=== PATIENT | male | born 1945 | race Asian ===

== ENCOUNTER → 2017-03-13 | Outpatient (CLI) | payer MEDICARE, OTHER ==
[2017-03-13 12:11] LABS: HEMOGLOBIN A1C 8.8 % (4.5-6.2)
[2017-03-13 12:17] LABS: CALCIUM, TOTAL 9.8 mg/dL (8.8-10.5); CREATININE 1.61 mg/dL (0.60-1.30); POTASSIUM 5.2 mmol/L (3.5-5.1)
== END | disposition home or self-care (01) ==
LOC: LABPV 09:09
PROVIDERS: ATTEND Internal Medicine Nephrology
DX: I12.9 Hypertensive chronic kidney disease with stage 1 through stage 4 chronic kidney disease, or unspecified chronic kidney disease (principal); N18.3 Chronic kidney disease, stage 3 (moderate); E11.29 Type 2 diabetes mellitus with other diabetic kidney complication; E78.4 Other hyperlipidemia
CPT/HCPCS: 82306; 82570; 83036; 84156

== ENCOUNTER → 2017-07-02 | Outpatient (CLI) | payer MEDICARE, OTHER ==
[2017-07-02 13:20] LABS: HEMOGLOBIN 13.2 g/dL (13.5-17.5)
[2017-07-02 13:24] LABS: HEMOGLOBIN A1C 6.8 % (4.5-6.2)
[2017-07-02 13:27] LABS: CALCIUM, TOTAL 9.7 mg/dL (8.8-10.5); CREATININE 1.74 mg/dL (0.60-1.30); PHOSPHORUS 5.5 mg/dL (2.5-4.9); POTASSIUM 5.4 mmol/L (3.5-5.1)
== END | disposition home or self-care (01) ==
LOC: LABPV 10:21
PROVIDERS: ATTEND Internal Medicine Nephrology
DX: E11.22 Type 2 diabetes mellitus with diabetic chronic kidney disease (principal); N18.3 Chronic kidney disease, stage 3 (moderate); E78.4 Other hyperlipidemia
CPT/HCPCS: 82570; 83036; 83970; 84100; 84156; 85014; 85018

== ENCOUNTER → 2017-10-16 | Outpatient (CLI) | payer MEDICARE, OTHER ==
[2017-10-16 10:09] LABS: APPEARANCE,URINE CLEAR (CLEAR); GLUCOSE, URINE (UA) NEGATIVE (NEGATIVE); KETONES,URINE NEGATIVE (NEGATIVE); LEUKOCYTE ESTERASE ,URINE NEGATIVE (NEGATIVE); OCCULT BLOOD,URINE NEGATIVE (NEGATIVE); PH,URINE 5.5 (5.0-8.0); PROTEIN,URINE SEE CONFIRM (NEGATIVE)
[2017-10-16 10:16] LABS: CALCIUM, TOTAL 9.4 mg/dL (8.8-10.5); CHOL/HDL RATIO 2.4 (4.2-7.3); CREATININE 1.56 mg/dL (0.60-1.30); POTASSIUM 5.1 mmol/L (3.5-5.1)
[2017-10-16 10:29] LABS: ADD UA MICROSCOPIC YES; SULFOSALICYLIC ACID,URINE 3+ (Negative)
[2017-10-16 10:31] LABS: FINE GRANULAR CASTS,URINE 0-2 /LPF (None Seen); RBC,URINE 0-2 /HPF (0-2); SQUAMOUS EPITHELIAL CELL,UR Rare /LPF (None Seen); WBC,URINE 0-2 /HPF (0-5)
== END | disposition home or self-care (01) ==
LOC: LABPV 08:31
PROVIDERS: ATTEND Internal Medicine Nephrology
DX: E11.22 Type 2 diabetes mellitus with diabetic chronic kidney disease (principal); N18.3 Chronic kidney disease, stage 3 (moderate); E78.4 Other hyperlipidemia
CPT/HCPCS: 82306; 84100

== ENCOUNTER → 2018-02-18 | Outpatient (CLI) | payer MEDICARE, OTHER ==
[2018-02-18 12:08] LABS: ALBUMIN 3.9 g/dL (3.4-5.0); BILIRUBIN,TOTAL 0.3 mg/dL (0.1-1.0); CALCIUM, TOTAL 9.4 mg/dL (8.8-10.5); CREATININE 1.93 mg/dL (0.60-1.30); POTASSIUM 5.6 mmol/L (3.5-5.1); TOTAL PROTEIN, SERUM 7.9 g/dL (6.4-8.2)
== END | disposition home or self-care (01) ==
LOC: LABPV 09:58
PROVIDERS: ATTEND Internal Medicine Nephrology
DX: E11.22 Type 2 diabetes mellitus with diabetic chronic kidney disease (principal); N18.3 Chronic kidney disease, stage 3 (moderate); E78.4 Other hyperlipidemia
CPT/HCPCS: 82570; 83036; 84156

== ENCOUNTER → 2018-06-04 | Outpatient (CLI) | payer MEDICARE, OTHER ==
[2018-06-04 10:17] LABS: CREATININE,URINE RANDOM 187.2 mg/dL (30.0-125.0)
[2018-06-04 10:24] LABS: HEMOGLOBIN A1C 8.2 % (4.5-6.2)
[2018-06-04 10:26] LABS: CALCIUM, TOTAL 9.4 mg/dL (8.8-10.5); CHOL/HDL RATIO 2.6 (4.2-7.3); CREATININE 2.08 mg/dL (0.60-1.30); POTASSIUM 5.1 mmol/L (3.5-5.1)
== END | disposition home or self-care (01) ==
LOC: LABPV 08:27
PROVIDERS: ATTEND Internal Medicine Nephrology
DX: E11.22 Type 2 diabetes mellitus with diabetic chronic kidney disease (principal); N18.3 Chronic kidney disease, stage 3 (moderate); E78.4 Other hyperlipidemia
CPT/HCPCS: 82306; 82570; 83036; 84156

== ENCOUNTER → 2018-10-15 | Outpatient (CLI) | payer MEDICARE, OTHER ==
[2018-10-15 15:30] LABS: APPEARANCE,URINE CLEAR (CLEAR); BILIRUBIN,URINE NEGATIVE (NEGATIVE); GLUCOSE, URINE (UA) 500 mg/dL (NEGATIVE); KETONES,URINE TRACE mg/dL (NEGATIVE); LEUKOCYTE ESTERASE ,URINE NEGATIVE (NEGATIVE); NITRATE,URINE NEGATIVE (NEGATIVE); OCCULT BLOOD,URINE NEGATIVE (NEGATIVE); PH,URINE 5.5 (5.0-8.0); PROTEIN,URINE SEE CONFIRM (NEGATIVE); UROBILINOGEN,URINE 0.2 mg/dL (<=1.0)
[2018-10-15 15:36] LABS: CALCIUM, TOTAL 9.1 mg/dL (8.8-10.5); CREATININE 1.73 mg/dL (0.60-1.30); PHOSPHORUS 5.2 mg/dL (2.5-4.9)
[2018-10-15 15:51] LABS: BACTERIA,URINE Few /HPF (None Seen); RBC,URINE 0-2 /HPF (0-2); SQUAMOUS EPITHELIAL CELL,UR Few /LPF (None Seen); SULFOSALICYLIC ACID,URINE 3+ (Negative); WBC,URINE 0-2 /HPF (0-5)
== END | disposition home or self-care (01) ==
LOC: LABPV 11:47
PROVIDERS: ATTEND Internal Medicine Nephrology
DX: E55.9 Vitamin D deficiency, unspecified (principal); E78.49 Other hyperlipidemia; E11.22 Type 2 diabetes mellitus with diabetic chronic kidney disease; N18.3 Chronic kidney disease, stage 3 (moderate)
CPT/HCPCS: 82306; 83970; 84100

== ENCOUNTER → 2019-02-11 | Outpatient (CLI) | payer MEDICARE, OTHER ==
[2019-02-11 13:07] LABS: ALBUMIN 3.5 g/dL (3.4-5.0); BILIRUBIN,TOTAL 0.4 mg/dL (0.1-1.0); CALCIUM, TOTAL 9.2 mg/dL (8.8-10.5); CREATININE 1.74 mg/dL (0.60-1.30); HEMOGLOBIN A1C 8.7 % (4.5-6.2); POTASSIUM 5.3 mmol/L (3.5-5.1); TOTAL PROTEIN, SERUM 7.2 g/dL (6.4-8.2)
[2019-02-11 13:15] LABS: CREATININE,URINE RANDOM 251.9 mg/dL (30.0-125.0)
[2019-02-11 13:15] LABS: PHOSPHORUS 5.8 mg/dL (2.5-4.9)
== END | disposition home or self-care (01) ==
LOC: LABPV 09:40
PROVIDERS: ATTEND Internal Medicine Nephrology
DX: E11.22 Type 2 diabetes mellitus with diabetic chronic kidney disease (principal); N18.9 Chronic kidney disease, unspecified; E78.49 Other hyperlipidemia
CPT/HCPCS: 82570; 83036; 84100; 84156

== ENCOUNTER → 2019-07-08 | Outpatient (CLI) | payer MEDICARE, OTHER ==
[2019-07-08 12:55] LABS: CALCIUM, TOTAL 9.6 mg/dL (8.8-10.5); CREATININE 1.96 mg/dL (0.60-1.30); PHOSPHORUS 4.5 mg/dL (2.5-4.9); POTASSIUM 4.6 mmol/L (3.5-5.1)
== END | disposition home or self-care (01) ==
LOC: LABPV 11:00
PROVIDERS: ATTEND Internal Medicine Nephrology
DX: E11.22 Type 2 diabetes mellitus with diabetic chronic kidney disease (principal); N18.3 Chronic kidney disease, stage 3 (moderate); R80.8 Other proteinuria; E83.39 Other disorders of phosphorus metabolism
CPT/HCPCS: 84100

== ENCOUNTER 2019-10-02 11:25 | Inpatient (IN) | payer MEDICARE, OTHER ==
[~2019-10-02] VITALS: Ht 167.6 cm; Wt 63.0 kg
[2019-10-02] MEDS ORDERED: FISH1 PO (12:09)
[2019-10-02] MEDS ORDERED: METF-960 PO (12:09)
[2019-10-02] MEDS ORDERED: SELE PO (12:09)
[2019-10-02] MEDS ORDERED: SITA50 PO (12:09)
[2019-10-02] MEDS ORDERED: CALC-1038 PO (12:09)
[2019-10-02] MEDS ORDERED: POLY17PO PO (12:09)
[2019-10-02] MEDS ORDERED: CARB-38 PO (12:09)
[2019-10-02] MEDS ORDERED: METO-558 PO (12:09)
[2019-10-02] MEDS ORDERED: ATOR10TA84 PO (12:09)
[2019-10-02] MEDS ORDERED: CHOL100018 PO (12:09)
[2019-10-02] MEDS ORDERED: ASPI-1182 PO (12:09)
[2019-10-02] MEDS ORDERED: MELA5TAB3 PO (12:09)
[2019-10-02] MEDS ORDERED: ACET-2247 PO (12:09)
[2019-10-02] MEDS ORDERED: EXEN2PEN SQ (12:09)
[2019-10-02] MEDS ORDERED: INSLAN SQ (12:09)
[2019-10-02] MEDS ORDERED: ALPR0.255 PO (12:09)
[2019-10-02 13:51] LABS: GLUCOSE,POINT OF CARE 228 MG/DL (70-110)
[2019-10-02 15:58] LABS: BASOPHILS % (AUTO) 0.7 % (0.0-2.0); EOSINOPHILS % (AUTO) 0.1 % (1.0-6.0); HEMATOCRIT 42.7 % (41-53); LYMPHOCYTES # (AUTO) 1.2 K/uL (1.0-4.8); LYMPHOCYTES % (AUTO) 10.5 % (22.0-44.0); MEAN CORPUSCULAR HEMOGLOBIN 29.1 pg (26.0-34.0); MEAN CORPUSCULAR HGB CONC 32.7 G/dL (31.0-37.0); MEAN CORPUSCULAR VOLUME 89 fL (80-100); MONOCYTES # (AUTO) 0.8 K/uL (0.1-1.0); MONOCYTES % (AUTO) 6.8 % (2.0-9.0); NEUTROPHILS # (AUTO) 9.6 K/uL (1.8-7.7); NEUTROPHILS % (AUTO) 81.9 % (40.0-70.0); PLATELET COUNT (AUTO) 432 K/uL (150-450); RED BLOOD CELL COUNT(AUTO) 4.79 MIL/uL (4.50-5.90); RED CELL DISTRIBUTION WIDTH 13.7 % (11.5-14.5)
[2019-10-02 16:06] LABS: ANION GAP 10 mmol/L (8-16); CALCIUM, TOTAL 9.9 mg/dL (8.8-10.5); CARBON DIOXIDE 26 mmol/L (22-29); CHLORIDE 95 mmol/L (98-107); CREATININE 2.41 mg/dL (0.60-1.30); GLOMERULAR FILTR. RATE CALC 27 mL/min (>60); GLUCOSE,RANDOM 187 mg/dL (70-110); POTASSIUM 4.8 mmol/L (3.5-5.1); SODIUM SERUM 131 mmol/L (136-145); UREA NITROGEN, BLOOD 50 mg/dL (7-18)
[2019-10-02 16:12] LABS: ALANINE AMINOTRANSFERASE 16 U/L (12-78); ALBUMIN 4.1 g/dL (3.4-5.0); ALKALINE PHOSPHATASE 48 U/L (46-116); ASPARTATE AMINOTRANSFERASE 17 U/L (15-37); BILIRUBIN,TOTAL 0.3 mg/dL (0.1-1.0); CREATINE KINASE, TOTAL ONLY 57 U/L (39-308); TOTAL PROTEIN, SERUM 8.5 g/dL (6.4-8.2)
[2019-10-02 16:15] LABS: TROPONIN I 0.18 ng/mL (0.00-0.05)
[2019-10-02 16:23] LABS: INR 0.9 (0.9-1.1); PROTHROMBIN TIME 9.6 SEC (9.4-11.6)
[2019-10-02 16:24] LABS: AMMONIA < 10 umol/L (11-32)
[2019-10-02 16:34] LABS: LACTIC ACID 2.1 mmol/L (0.4-2.0)
[2019-10-02] MEDS ORDERED: CefTRIAXone 1 GM/DEXTROSE 50 ML IV ONE (17:00)
[2019-10-02] MEDS ORDERED: SODIUM CHLORIDE 0.9% 2,000 ML IV ONE (17:00)
[2019-10-02] MEDS ORDERED: HydrALAZINE HCL 20 MG/ML VIAL IVP ONE (17:15)
[2019-10-02] MEDS ORDERED: ACETAMINOPHEN 325 MG TABLET PO PRN (18:00)
[2019-10-02] MEDS ORDERED: ASPIRIN 81 MG CHEWABLE TABLET PO ONE (18:00)
[2019-10-02] MEDS ORDERED: ONDANSETRON HCL 4 MG/2 ML VIAL IVP PRN ×2 (18:00→23:45)
[2019-10-02 20:29] VITALS: BP 144/78
[2019-10-02] MEDS ORDERED: 0.9% SODIUM CHLORIDE 10 ML SYRINGE IVP PRN (23:45)
[2019-10-02] MEDS ORDERED: ZOLPIDEM TARTRATE 5 MG TABLET PO PRN (23:45)
[2019-10-02] MEDS ORDERED: INSULIN GLARGINE,HUM.REC.ANLOG 100 UNITS/ML SQ SCH (23:45)
[2019-10-02] MEDS ORDERED: DEXTROSE 50%-WATER 25 GM/50 ML SYRINGE IVP PRN (23:45)
[2019-10-03] VITALS (17 sets, daily range): BP systolic 113–168; BP diastolic 49–100
[2019-10-03] MEDS ORDERED: ACETAMINOPHEN 325 MG TABLET PO SCH
[2019-10-03] MEDS: SELEGILINE HCL 5 MG TABLET PO SCH ×3 (00:32→21:21)
[2019-10-03] MEDS ORDERED: PNEUMOCOCCAL VACCINE POLYVALENT 0.5 ML VIAL [PPSV23] IM ONE (02:00)
[2019-10-03 06:49] LABS: BASOPHILS % (AUTO) 0.3 % (0.0-2.0); EOSINOPHILS % (AUTO) 0 % (1.0-6.0); HEMATOCRIT 36.6 % (41-53); HEMOGLOBIN 12.2 g/dL (13.5-17.5); LYMPHOCYTES # (AUTO) 1.4 K/uL (1.0-4.8); LYMPHOCYTES % (AUTO) 11.9 % (22.0-44.0); MEAN CORPUSCULAR HEMOGLOBIN 29.3 pg (26.0-34.0); MEAN CORPUSCULAR HGB CONC 33.2 G/dL (31.0-37.0); MEAN CORPUSCULAR VOLUME 88 fL (80-100); MONOCYTES # (AUTO) 1.3 K/uL (0.1-1.0); MONOCYTES % (AUTO) 10.9 % (2.0-9.0); NEUTROPHILS % (AUTO) 76.9 % (40.0-70.0); PLATELET COUNT (AUTO) 359 K/uL (150-450); RED BLOOD CELL COUNT(AUTO) 4.16 MIL/uL (4.50-5.90); RED CELL DISTRIBUTION WIDTH 13.7 % (11.5-14.5)
[2019-10-03 07:00] LABS: CALCIUM, TOTAL 8.6 mg/dL (8.8-10.5); CREATININE 1.84 mg/dL (0.60-1.30); MAGNESIUM 1.8 mg/dL (1.80-2.40); POTASSIUM 4.5 mmol/L (3.5-5.1)
[2019-10-03] MEDS ORDERED: ATORVASTATIN CALCIUM 40 MG TABLET PO ONE (08:00)
[2019-10-03] MEDS ORDERED: HEPARIN SODIUM,PORCINE 5,000 UNITS/ML VIAL IVP PRN ×2 (08:00)
[2019-10-03] MEDS ORDERED: MetFORMIN HCL 500 MG TABLET PO SCH (08:00)
[2019-10-03] MEDS ORDERED: HEPARIN SODIUM,PORCINE 5,000 UNITS/ML VIAL IVP ONE (08:00)
[2019-10-03] MEDS: ASPIRIN 81 MG CHEWABLE TABLET PO SCH (08:26)
[2019-10-03 08:43] LABS: CHOL/HDL RATIO 2.6 (4.2-7.3)
[2019-10-03] MEDS: HEPARIN SODIUM 25000 UNITS/D5W 250 ML IV PRN (08:59)
[2019-10-03] MEDS ORDERED: DOCUSATE SODIUM 100 MG CAPSULE PO PRN (09:00)
[2019-10-03] MEDS ORDERED: METOPROLOL SUCCINATE 50 MG ER TABLET PO SCH (09:00)
[2019-10-03] MEDS ORDERED: SitaGLIPtin PHOSPHATE 50 MG TABLET PO SCH (09:00)
[2019-10-03] MEDS: CALCIUM OYSTER SHELL 500 MG TABLET PO SCH (09:00)
[2019-10-03] MEDS: CHOLECALCIFEROL (VIT D3) 1,000 UNITS TABLET PO SCH ×2 (09:00→21:21)
[2019-10-03] MEDS ORDERED: ALPRAZolam 0.25 MG TABLET PO SCH (09:00)
[2019-10-03] MEDS ORDERED: METOPROLOL TARTRATE 25 MG TABLET PO SCH (09:00)
[2019-10-03] MEDS ORDERED: DOCUSATE SODIUM 100 MG CAPSULE PO SCH (09:00)
[2019-10-03] MEDS ORDERED: ASPIRIN 81 MG EC TABLET PO SCH (09:00)
[2019-10-03 09:08] LABS: PROTHROMBIN TIME 10.3 SEC (9.4-11.6)
[2019-10-03] MEDS ORDERED: METOPROLOL TARTRATE 25 MG TABLET PO ONE (10:15)
[2019-10-03] MEDS: PANTOPRAZOLE SODIUM 40 MG DR TABLET PO SCH (10:29)
[2019-10-03] MEDS: SODIUM CHLORIDE 0.9% 1,000 ML IV SCH ×2 (10:30→22:52)
[2019-10-03 11:14] LABS: APPEARANCE,URINE CLEAR (CLEAR); BILIRUBIN,URINE NEGATIVE (NEGATIVE); GLUCOSE, URINE (UA) 500 mg/dL (NEGATIVE); KETONES,URINE 40 mg/dL (NEGATIVE); LEUKOCYTE ESTERASE ,URINE NEGATIVE (NEGATIVE); NITRATE,URINE NEGATIVE (NEGATIVE); PROTEIN,URINE SEE CONFIRM (NEGATIVE); UROBILINOGEN,URINE 0.2 mg/dL (<=1.0)
[2019-10-03 11:24] LABS: OCCULT BLOOD,URINE TRACE (NEGATIVE)
[2019-10-03 11:25] LABS: BACTERIA,URINE None Seen /HPF (None Seen); RBC,URINE 0-2 /HPF (0-2); SULFOSALICYLIC ACID,URINE 3+ (Negative); WBC,URINE None Seen /HPF (0-5)
[2019-10-03] MEDS ORDERED: IOHEXOL 300 MG/ML 150 ML VIAL ONE (11:55)
[2019-10-03] MEDS ORDERED: LIDOCAINE/PF 1% 30 ML VIAL ONE (11:55)
[2019-10-03] MEDS ORDERED: HEPARIN SODIUM 1000 UNITS/NS 1,000 ML ONE (11:55)
[2019-10-03] MEDS ORDERED: SODIUM BICARBONATE 50 MEQ/50 ML VIAL ONE (11:55)
[2019-10-03 12:20] LABS: GLUCOMETER DEV NAME(LOC) 5N.1; GLUCOSE,POINT OF CARE 167 MG/DL (70-110)
[2019-10-03 12:22] LABS: GLUCOMETER DEV NAME(LOC) 5S.2A; GLUCOSE,POINT OF CARE 149 MG/DL (70-110)
[2019-10-03] MEDS ORDERED: IOHEXOL 300 MG/ML 100 ML VIAL ONE (12:22)
[2019-10-03] MEDS ORDERED: HEPARIN SODIUM 2,000 UNITS in HEPARIN SODIUM 1000 UNITS/NS 1,000 ML IARTER ONE (12:47)
[2019-10-03] MEDS ORDERED: SODIUM CHLORIDE 0.9% 500 ML IV ONE (12:47)
[2019-10-03] MEDS ORDERED: IOHEXOL 300 MG/ML 150 ML VIAL IARTER ONE (13:00)
[2019-10-03] MEDS ORDERED: LIDOCAINE 1% 30 ML/SOD BICARB 8.4% 4 ML SQ ONE (13:00)
[2019-10-03] MEDS ORDERED: AmLODIPine BESYLATE 5 MG TABLET ONE (15:37)
[2019-10-03] MEDS: AmLODIPine BESYLATE 5 MG TABLET PO SCH (15:45)
[2019-10-03] MEDS ORDERED: HydrALAZINE HCL 20 MG/ML VIAL ONE (16:43)
[2019-10-03] MEDS: HydrALAZINE HCL 20 MG/ML VIAL IVP PRN (16:50)
[2019-10-03] MEDS: INSULIN LISPRO 100 UNITS/ML SQ PRN ×2 (17:36→21:25)
[2019-10-03] MEDS ORDERED: AMIODARONE HCL 360 MG in DEXTROSE 5%-WATER 242.8 ML IV ONE (20:30)
[2019-10-03] MEDS ORDERED: DIGOXIN 250 MCG/ML 2 ML AMP IVP ONE (20:30)
[2019-10-03] MEDS: INSULIN GLARGINE,HUM.REC.ANLOG 100 UNITS/ML SQ SCH (21:25)
[2019-10-03] MEDS: ATORVASTATIN CALCIUM 10 MG TABLET PO SCH (21:54)
[2019-10-03 22:52] LABS: GLUCOSE,POINT OF CARE 176 MG/DL (70-110)
[2019-10-03 22:52] LABS: GLUCOSE,POINT OF CARE 197 MG/DL (70-110)
[2019-10-04] VITALS (7 sets, daily range): BP systolic 123–176; BP diastolic 43–101
[2019-10-04] MEDS ORDERED: AMIODARONE HCL 540 MG in DEXTROSE 5%-WATER 239.2 ML IV ONE (02:30)
[2019-10-04] MEDS: HydrALAZINE HCL 20 MG/ML VIAL IVP PRN ×2 (04:43→14:05)
[2019-10-04 05:08] LABS: BASOPHILS % (AUTO) 0.8 % (0.0-2.0); EOSINOPHILS % (AUTO) 0.1 % (1.0-6.0); HEMOGLOBIN 12.9 g/dL (13.5-17.5); LYMPHOCYTES # (AUTO) 1.4 K/uL (1.0-4.8); LYMPHOCYTES % (AUTO) 10.2 % (22.0-44.0); MEAN CORPUSCULAR HEMOGLOBIN 29.4 pg (26.0-34.0); MEAN CORPUSCULAR VOLUME 89 fL (80-100); MONOCYTES # (AUTO) 1.5 K/uL (0.1-1.0); MONOCYTES % (AUTO) 11.2 % (2.0-9.0); NEUTROPHILS # (AUTO) 10.4 K/uL (1.8-7.7); NEUTROPHILS % (AUTO) 77.7 % (40.0-70.0); PLATELET COUNT (AUTO) 370 K/uL (150-450); RED BLOOD CELL COUNT(AUTO) 4.38 MIL/uL (4.50-5.90); RED CELL DISTRIBUTION WIDTH 13.9 % (11.5-14.5)
[2019-10-04 05:24] LABS: ALBUMIN 3.2 g/dL (3.4-5.0); BILIRUBIN,TOTAL 0.5 mg/dL (0.1-1.0); CALCIUM, TOTAL 8.8 mg/dL (8.8-10.5); CREATININE 1.66 mg/dL (0.60-1.30); MAGNESIUM 1.6 mg/dL (1.80-2.40); PHOSPHORUS 2.9 mg/dL (2.5-4.9); POTASSIUM 4.4 mmol/L (3.5-5.1)
[2019-10-04] MEDS: INSULIN LISPRO 100 UNITS/ML SQ PRN ×3 (06:28→17:21)
[2019-10-04] MEDS: PANTOPRAZOLE SODIUM 40 MG DR TABLET PO SCH (09:25)
[2019-10-04] MEDS: ASPIRIN 81 MG CHEWABLE TABLET PO SCH (09:25)
[2019-10-04] MEDS: CALCIUM OYSTER SHELL 500 MG TABLET PO SCH (09:25)
[2019-10-04] MEDS: CHOLECALCIFEROL (VIT D3) 1,000 UNITS TABLET PO SCH ×2 (09:26→20:37)
[2019-10-04] MEDS: AmLODIPine BESYLATE 5 MG TABLET PO SCH ×2 (09:26→20:37)
[2019-10-04] MEDS: METOPROLOL SUCCINATE 50 MG ER TABLET PO SCH (09:26)
[2019-10-04] MEDS: SELEGILINE HCL 5 MG TABLET PO SCH ×2 (09:27→20:37)
[2019-10-04] MEDS: POLYETHYLENE GLYCOL 3350 17 GM PACKET PO SCH (09:27)
[2019-10-04] MEDS: SODIUM CHLORIDE 0.9% 1,000 ML IV SCH (09:28)
[2019-10-04] MEDS: HEPARIN SODIUM 25000 UNITS/D5W 250 ML IV PRN (09:30)
[2019-10-04 17:26] LABS: GLUCOSE,POINT OF CARE 189 MG/DL (70-110)
[2019-10-04 17:29] LABS: GLUCOSE,POINT OF CARE 206 MG/DL (70-110)
[2019-10-04] MEDS: ATORVASTATIN CALCIUM 10 MG TABLET PO SCH (20:37)
[2019-10-04] MEDS: AMIODARONE HCL 750 MG in DEXTROSE 5%-WATER 485 ML IV SCH (20:38)
[2019-10-04] MEDS: INSULIN GLARGINE,HUM.REC.ANLOG 100 UNITS/ML SQ SCH (20:51)
[2019-10-04] MEDS: ACETAMINOPHEN 325 MG TABLET PO PRN (23:03)
[2019-10-05] VITALS: BP 168/98
[2019-10-05] MEDS: HydrALAZINE HCL 20 MG/ML VIAL IVP PRN ×3 (00:10→22:34)
[2019-10-05 02:15] LABS: GLUCOSE,POINT OF CARE 139 MG/DL (70-110)
[2019-10-05] MEDS: SODIUM CHLORIDE 0.9% 1,000 ML IV SCH (03:38)
[2019-10-05 04:00] VITALS: BP 146/95
[2019-10-05 05:36] LABS: CALCIUM, TOTAL 8.6 mg/dL (8.8-10.5); CREATININE 1.65 mg/dL (0.60-1.30); MAGNESIUM 1.6 mg/dL (1.80-2.40); PHOSPHORUS 3.4 mg/dL (2.5-4.9)
[2019-10-05] MEDS ORDERED: MAGNESIUM OXIDE 400 MG TABLET PO ONE (05:45)
[2019-10-05] MEDS: INSULIN LISPRO 100 UNITS/ML SQ PRN ×2 (06:46→12:02)
[2019-10-05 07:27] LABS: GLUCOSE,POINT OF CARE 173 MG/DL (70-110)
[2019-10-05 08:00] VITALS: BP 136/63
[2019-10-05] MEDS ORDERED: MAGNESIUM SULFATE 2 GM/WATER 50 ML IV ONE (08:15)
[2019-10-05] MEDS ORDERED: MAGNESIUM SULFATE 2 GM in DEXTROSE 5%-WATER 50 ML IV ONE (08:30)
[2019-10-05] MEDS: SELEGILINE HCL 5 MG TABLET PO SCH ×2 (08:38→21:00)
[2019-10-05] MEDS: METOPROLOL SUCCINATE 50 MG ER TABLET PO SCH (08:39)
[2019-10-05] MEDS: CALCIUM OYSTER SHELL 500 MG TABLET PO SCH (08:39)
[2019-10-05] MEDS: AmLODIPine BESYLATE 5 MG TABLET PO SCH ×2 (08:39→21:00)
[2019-10-05] MEDS: ASPIRIN 81 MG CHEWABLE TABLET PO SCH (08:39)
[2019-10-05] MEDS: PANTOPRAZOLE SODIUM 40 MG DR TABLET PO SCH (08:39)
[2019-10-05] MEDS: CHOLECALCIFEROL (VIT D3) 1,000 UNITS TABLET PO SCH ×2 (08:39→21:00)
[2019-10-05] MEDS: DIGOXIN 250 MCG/ML 2 ML AMP IVP SCH ×2 (08:53→14:45)
[2019-10-05 12:00] VITALS: BP 121/93
[2019-10-05 13:01] LABS: GLUCOSE,POINT OF CARE 161 MG/DL (70-110)
[2019-10-05] MEDS: HEPARIN SODIUM 25000 UNITS/D5W 250 ML IV PRN (15:24)
[2019-10-05 16:00] VITALS: BP 159/105
[2019-10-05 20:00] VITALS: BP 151/110
[2019-10-05] MEDS: INSULIN GLARGINE,HUM.REC.ANLOG 100 UNITS/ML SQ SCH (21:00)
[2019-10-05] MEDS: ATORVASTATIN CALCIUM 10 MG TABLET PO SCH (21:00)
[2019-10-05] MEDS: AMIODARONE HCL 750 MG in DEXTROSE 5%-WATER 485 ML IV SCH (21:03)
[2019-10-06] VITALS: BP 159/77
[2019-10-06 04:00] VITALS: BP 152/82
[2019-10-06 05:35] LABS: CALCIUM, TOTAL 8.8 mg/dL (8.8-10.5); CREATININE 1.71 mg/dL (0.60-1.30); MAGNESIUM 1.8 mg/dL (1.80-2.40); PHOSPHORUS 3.4 mg/dL (2.5-4.9); POTASSIUM 4.8 mmol/L (3.5-5.1)
[2019-10-06 08:00] VITALS: BP 171/103
[2019-10-06] MEDS: POLYETHYLENE GLYCOL 3350 17 GM PACKET PO SCH (09:00)
[2019-10-06] MEDS: SELEGILINE HCL 5 MG TABLET PO SCH ×2 (09:46→21:35)
[2019-10-06] MEDS: AmLODIPine BESYLATE 5 MG TABLET PO SCH ×2 (09:47→21:36)
[2019-10-06] MEDS: CHOLECALCIFEROL (VIT D3) 1,000 UNITS TABLET PO SCH ×2 (09:47→21:36)
[2019-10-06] MEDS: CALCIUM OYSTER SHELL 500 MG TABLET PO SCH (09:47)
[2019-10-06] MEDS: ASPIRIN 81 MG CHEWABLE TABLET PO SCH (09:47)
[2019-10-06] MEDS: PANTOPRAZOLE SODIUM 40 MG DR TABLET PO SCH (09:51)
[2019-10-06] MEDS: SODIUM BICARBONATE 650 MG TABLET PO SCH (11:05)
[2019-10-06] MEDS: METOPROLOL SUCCINATE 50 MG ER TABLET PO SCH (11:06)
[2019-10-06 12:00] VITALS: BP 160/87
[2019-10-06 12:17] LABS: GLUCOSE,POINT OF CARE 226 MG/DL (70-110)
[2019-10-06] MEDS: INSULIN LISPRO 100 UNITS/ML SQ PRN ×3 (12:26→21:34)
[2019-10-06] MEDS: VITAMIN B COMP/VIT C/FOLIC ACID CAPSULE PO SCH (12:30)
[2019-10-06] MEDS: CARBIDOPA/LEVODOPA 25-100 MG TABLET PO SCH ×2 (15:00→19:15)
[2019-10-06 16:00] VITALS: BP 142/76
[2019-10-06 17:24] LABS: GLUCOSE,POINT OF CARE 179 MG/DL (70-110)
[2019-10-06 20:00] VITALS: BP 139/74
[2019-10-06] MEDS: AMIODARONE HCL 750 MG in DEXTROSE 5%-WATER 485 ML IV SCH (20:36)
[2019-10-06] MEDS: INSULIN GLARGINE,HUM.REC.ANLOG 100 UNITS/ML SQ SCH (21:34)
[2019-10-06] MEDS: ATORVASTATIN CALCIUM 40 MG TABLET PO SCH (21:36)
[2019-10-07] VITALS (7 sets, daily range): BP systolic 104–163; BP diastolic 51–83
[2019-10-07] MEDS: CARBIDOPA/LEVODOPA 25-100 MG TABLET PO SCH ×4 (00:02→17:36)
[2019-10-07] MEDS: HydrALAZINE HCL 20 MG/ML VIAL IVP PRN (05:14)
[2019-10-07] MEDS ORDERED: SODIUM CHLORIDE 0.9% 100 ML ONE (06:02)
[2019-10-07 06:24] LABS: GLUCOSE,POINT OF CARE 151 MG/DL (70-110)
[2019-10-07] MEDS: INSULIN LISPRO 100 UNITS/ML SQ PRN ×3 (06:36→21:58)
[2019-10-07] MEDS: ASPIRIN 81 MG CHEWABLE TABLET PO SCH ×2 (08:57→09:00)
[2019-10-07] MEDS: SELEGILINE HCL 5 MG TABLET PO SCH ×3 (08:57→20:59)
[2019-10-07] MEDS: VITAMIN B COMP/VIT C/FOLIC ACID CAPSULE PO SCH ×2 (08:57→09:00)
[2019-10-07] MEDS: CALCIUM OYSTER SHELL 500 MG TABLET PO SCH ×2 (08:58→09:00)
[2019-10-07] MEDS: PANTOPRAZOLE SODIUM 40 MG DR TABLET PO SCH ×2 (08:58→09:00)
[2019-10-07] MEDS: AmLODIPine BESYLATE 5 MG TABLET PO SCH ×3 (08:58→20:58)
[2019-10-07] MEDS: SODIUM BICARBONATE 650 MG TABLET PO SCH ×2 (08:58→09:00)
[2019-10-07] MEDS: CHOLECALCIFEROL (VIT D3) 1,000 UNITS TABLET PO SCH ×3 (08:59→21:01)
[2019-10-07] MEDS: METOPROLOL SUCCINATE 50 MG ER TABLET PO SCH (09:00)
[2019-10-07] MEDS ORDERED: METOPROLOL SUCCINATE 50 MG ER TABLET PO SCH (09:00)
[2019-10-07] MEDS: AMIODARONE HCL 200 MG TABLET PO SCH ×2 (09:30→20:58)
[2019-10-07] MEDS ORDERED: LORazepam 2 MG/ML VIAL IM PRN (11:30)
[2019-10-07] MEDS: LORazepam 2 MG/ML VIAL IVP PRN ×2 (12:27→14:50)
[2019-10-07 13:27] LABS: GLUCOSE,POINT OF CARE 142 MG/DL (70-110)
[2019-10-07] MEDS ORDERED: AMIODARONE HCL 750 MG in DEXTROSE 5%-WATER 485 ML IV SCH (20:00)
[2019-10-07] MEDS: QUEtiapine FUMARATE 25 MG TABLET PO SCH (20:56)
[2019-10-07] MEDS: ATORVASTATIN CALCIUM 40 MG TABLET PO SCH (20:56)
[2019-10-07] MEDS: INSULIN GLARGINE,HUM.REC.ANLOG 100 UNITS/ML SQ SCH (21:58)
[2019-10-08] MEDS: CARBIDOPA/LEVODOPA 25-100 MG TABLET PO SCH ×4 (00:46→17:37)
[2019-10-08 02:50] LABS: GLUCOMETER DEV NAME(LOC) 5N.1; GLUCOSE,POINT OF CARE 153 MG/DL (70-110)
[2019-10-08 02:50] LABS: GLUCOMETER DEV NAME(LOC) 5N.2; GLUCOSE,POINT OF CARE 191 MG/DL (70-110)
[2019-10-08 04:57] VITALS: BP 125/65
[2019-10-08 06:53] LABS: BASOPHILS % (AUTO) 0.5 % (0.0-2.0); EOSINOPHILS % (AUTO) 2.1 % (1.0-6.0); HEMATOCRIT 32.4 % (41-53); HEMOGLOBIN 10.6 g/dL (13.5-17.5); LYMPHOCYTES # (AUTO) 0.7 K/uL (1.0-4.8); LYMPHOCYTES % (AUTO) 6.5 % (22.0-44.0); MEAN CORPUSCULAR HEMOGLOBIN 29.6 pg (26.0-34.0); MEAN CORPUSCULAR HGB CONC 32.7 G/dL (31.0-37.0); MEAN CORPUSCULAR VOLUME 90 fL (80-100); MONOCYTES # (AUTO) 1.4 K/uL (0.1-1.0); MONOCYTES % (AUTO) 13.5 % (2.0-9.0); NEUTROPHILS % (AUTO) 77.4 % (40.0-70.0); PLATELET COUNT (AUTO) 261 K/uL (150-450); RED BLOOD CELL COUNT(AUTO) 3.59 MIL/uL (4.50-5.90)
[2019-10-08 07:20] LABS: ALBUMIN 2.2 g/dL (3.4-5.0); BILIRUBIN,TOTAL 0.4 mg/dL (0.1-1.0); CALCIUM, TOTAL 8.5 mg/dL (8.8-10.5); CREATININE 1.83 mg/dL (0.60-1.30); MAGNESIUM 1.8 mg/dL (1.80-2.40); POTASSIUM 3.8 mmol/L (3.5-5.1); TOTAL PROTEIN, SERUM 5.9 g/dL (6.4-8.2)
[2019-10-08 07:38] LABS: PHOSPHORUS 3.8 mg/dL (2.5-4.9)
[2019-10-08 07:43] VITALS: BP 114/64
[2019-10-08] MEDS: VITAMIN B COMP/VIT C/FOLIC ACID CAPSULE PO SCH (08:57)
[2019-10-08] MEDS: ASPIRIN 81 MG CHEWABLE TABLET PO SCH (08:58)
[2019-10-08] MEDS: CHOLECALCIFEROL (VIT D3) 1,000 UNITS TABLET PO SCH (08:58)
[2019-10-08] MEDS: PANTOPRAZOLE SODIUM 40 MG DR TABLET PO SCH (08:58)
[2019-10-08] MEDS: AMIODARONE HCL 200 MG TABLET PO SCH ×2 (08:58→20:21)
[2019-10-08] MEDS: AmLODIPine BESYLATE 5 MG TABLET PO SCH (08:59)
[2019-10-08] MEDS: SELEGILINE HCL 5 MG TABLET PO SCH ×2 (08:59→20:21)
[2019-10-08] MEDS: CALCIUM OYSTER SHELL 500 MG TABLET PO SCH (09:00)
[2019-10-08] MEDS: POLYETHYLENE GLYCOL 3350 17 GM PACKET PO SCH (09:00)
[2019-10-08] MEDS: QUEtiapine FUMARATE 25 MG TABLET PO SCH ×2 (09:00→20:21)
[2019-10-08] MEDS: METOPROLOL SUCCINATE 50 MG ER TABLET PO SCH (09:01)
[2019-10-08 11:15] VITALS: BP 110/57
[2019-10-08] MEDS: ACETAMINOPHEN 325 MG TABLET PO PRN (12:17)
[2019-10-08] MEDS: INSULIN LISPRO 100 UNITS/ML SQ PRN ×3 (12:21→21:06)
[2019-10-08 12:38] LABS: GLUCOMETER DEV NAME(LOC) 5N.1; GLUCOSE,POINT OF CARE 158 MG/DL (70-110)
[2019-10-08] MEDS ORDERED: DOCUSATE SODIUM 250 MG CAPSULE PO PRN (14:00)
[2019-10-08] MEDS: MethylPREDNISolone SOD SUCC 40 MG/ML VIAL IVP SCH ×2 (15:02→20:21)
[2019-10-08 15:52] VITALS: BP 121/70
[2019-10-08 17:53] LABS: GLUCOMETER DEV NAME(LOC) 5N.2; GLUCOSE,POINT OF CARE 110 MG/DL (70-110)
[2019-10-08 17:56] LABS: GLUCOMETER DEV NAME(LOC) 5N.1; GLUCOSE,POINT OF CARE 180 MG/DL (70-110)
[2019-10-08 19:38] VITALS: BP 121/60
[2019-10-08] MEDS: ATORVASTATIN CALCIUM 40 MG TABLET PO SCH (20:21)
[2019-10-08] MEDS: INSULIN GLARGINE,HUM.REC.ANLOG 100 UNITS/ML SQ SCH (21:06)
[2019-10-09 00:14] VITALS: BP 125/65
[2019-10-09] MEDS: CARBIDOPA/LEVODOPA 25-100 MG TABLET PO SCH ×5 (00:16→23:54)
[2019-10-09 01:17] LABS: GLUCOMETER DEV NAME(LOC) 5N.1; GLUCOSE,POINT OF CARE 366 MG/DL (70-110)
[2019-10-09 05:12] VITALS: BP 136/63
[2019-10-09] MEDS: INSULIN LISPRO 100 UNITS/ML SQ PRN ×4 (06:43→20:37)
[2019-10-09 07:09] LABS: BASOPHILS % (AUTO) 0.2 % (0.0-2.0); EOSINOPHILS % (AUTO) 0 % (1.0-6.0); HEMATOCRIT 34.4 % (41-53); HEMOGLOBIN 11.4 g/dL (13.5-17.5); LYMPHOCYTES # (AUTO) 0.3 K/uL (1.0-4.8); LYMPHOCYTES % (AUTO) 2.6 % (22.0-44.0); MEAN CORPUSCULAR HEMOGLOBIN 29.5 pg (26.0-34.0); MEAN CORPUSCULAR VOLUME 89 fL (80-100); MONOCYTES # (AUTO) 0.3 K/uL (0.1-1.0); MONOCYTES % (AUTO) 2.5 % (2.0-9.0); NEUTROPHILS # (AUTO) 11.8 K/uL (1.8-7.7); PLATELET COUNT (AUTO) 347 K/uL (150-450); RED BLOOD CELL COUNT(AUTO) 3.86 MIL/uL (4.50-5.90); RED CELL DISTRIBUTION WIDTH 13.5 % (11.5-14.5)
[2019-10-09 07:11] LABS: NEUTROPHILS % (AUTO) 94.7 % (40.0-70.0)
[2019-10-09 07:18] LABS: CALCIUM, TOTAL 9.1 mg/dL (8.8-10.5); CREATININE 1.96 mg/dL (0.60-1.30); POTASSIUM 4.3 mmol/L (3.5-5.1); URIC ACID 8.6 mg/dL (2.6-7.2)
[2019-10-09 07:35] VITALS: BP 133/70
[2019-10-09] MEDS: PANTOPRAZOLE SODIUM 40 MG DR TABLET PO SCH (08:08)
[2019-10-09] MEDS: MethylPREDNISolone SOD SUCC 40 MG/ML VIAL IVP SCH ×2 (08:08→20:01)
[2019-10-09] MEDS: VITAMIN B COMP/VIT C/FOLIC ACID CAPSULE PO SCH (08:08)
[2019-10-09] MEDS: QUEtiapine FUMARATE 25 MG TABLET PO SCH (08:09)
[2019-10-09] MEDS: METOPROLOL SUCCINATE 50 MG ER TABLET PO SCH (08:09)
[2019-10-09] MEDS: CALCIUM OYSTER SHELL 500 MG TABLET PO SCH (08:09)
[2019-10-09] MEDS: ASPIRIN 81 MG CHEWABLE TABLET PO SCH (08:09)
[2019-10-09] MEDS: AMIODARONE HCL 200 MG TABLET PO SCH ×2 (08:09→20:02)
[2019-10-09] MEDS: SELEGILINE HCL 5 MG TABLET PO SCH ×2 (08:10→20:02)
[2019-10-09] MEDS: AmLODIPine BESYLATE 5 MG TABLET PO SCH (08:17)
[2019-10-09 08:30] LABS: ERYTHROCYTE SEDIMENTATION RATE 98 MM/HR (0-15)
[2019-10-09] MEDS: CHOLECALCIFEROL (VIT D3) 1,000 UNITS TABLET PO SCH (12:30)
[2019-10-09 12:42] VITALS: BP 128/78
[2019-10-09 15:46] VITALS: BP 123/66
[2019-10-09 17:45] LABS: GLUCOMETER DEV NAME(LOC) 5N.1; GLUCOSE,POINT OF CARE 384 MG/DL (70-110)
[2019-10-09 17:45] LABS: GLUCOMETER DEV NAME(LOC) 5N.1; GLUCOSE,POINT OF CARE 279 MG/DL (70-110)
[2019-10-09] MEDS: ATORVASTATIN CALCIUM 40 MG TABLET PO SCH (20:01)
[2019-10-09] MEDS: INSULIN GLARGINE,HUM.REC.ANLOG 100 UNITS/ML SQ SCH (20:39)
[2019-10-09] MEDS ORDERED: QUEtiapine FUMARATE 25 MG TABLET PO SCH (21:00)
[2019-10-10 00:12] VITALS: BP 148/77
[2019-10-10 01:10] LABS: GLUCOMETER DEV NAME(LOC) 5N.2; GLUCOSE,POINT OF CARE 321 MG/DL (70-110)
[2019-10-10 01:11] LABS: GLUCOMETER DEV NAME(LOC) 5N.2; GLUCOSE,POINT OF CARE 344 MG/DL (70-110)
[2019-10-10 01:11] LABS: GLUCOMETER DEV NAME(LOC) 5N.1; GLUCOSE,POINT OF CARE 363 MG/DL (70-110)
[2019-10-10] MEDS: CARBIDOPA/LEVODOPA 25-100 MG TABLET PO SCH ×2 (05:45→11:38)
[2019-10-10] MEDS: INSULIN LISPRO 100 UNITS/ML SQ PRN ×2 (05:48→11:42)
[2019-10-10 06:08] LABS: GLUCOMETER DEV NAME(LOC) 5N.1; GLUCOSE,POINT OF CARE 351 MG/DL (70-110)
[2019-10-10 06:27] VITALS: BP 157/80
[2019-10-10 08:03] VITALS: BP 150/79
[2019-10-10] MEDS: ASPIRIN 81 MG CHEWABLE TABLET PO SCH (09:02)
[2019-10-10] MEDS: PANTOPRAZOLE SODIUM 40 MG DR TABLET PO SCH (09:02)
[2019-10-10] MEDS: MethylPREDNISolone SOD SUCC 40 MG/ML VIAL IVP SCH (09:02)
[2019-10-10] MEDS: VITAMIN B COMP/VIT C/FOLIC ACID CAPSULE PO SCH (09:02)
[2019-10-10] MEDS: SELEGILINE HCL 5 MG TABLET PO SCH (09:02)
[2019-10-10] MEDS: AmLODIPine BESYLATE 5 MG TABLET PO SCH (09:02)
[2019-10-10] MEDS: AMIODARONE HCL 200 MG TABLET PO SCH (09:02)
[2019-10-10] MEDS: METOPROLOL SUCCINATE 50 MG ER TABLET PO SCH (09:03)
[2019-10-10] MEDS: CALCIUM OYSTER SHELL 500 MG TABLET PO SCH (09:03)
[2019-10-10] MEDS: POLYETHYLENE GLYCOL 3350 17 GM PACKET PO SCH (09:03)
[2019-10-10 11:28] VITALS: BP 138/68
[2019-10-10] MEDS: CHOLECALCIFEROL (VIT D3) 1,000 UNITS TABLET PO SCH (11:39)
[2019-10-10 17:46] LABS: GLUCOMETER DEV NAME(LOC) 5N.1; GLUCOSE,POINT OF CARE 210 MG/DL (70-110)
== END 2019-10-10 14:27 | DRG 871 ==
LOC: EMS 11:25 → 5S 17:29 → ICU 10-03 14:10 → 5S 10-07 16:20
PROVIDERS: ADMIT Internal Medicine; ATTEND Internal Medicine
PROC: 4A023N7 Measurement of Cardiac Sampling and Pressure, Left Heart, Percutaneous Approach (ICD-10-PCS; principal; 2019-10-03)
PROC: B2111ZZ Fluoroscopy of Multiple Coronary Arteries using Low Osmolar Contrast (ICD-10-PCS; 2019-10-03)
DX: A41.9 Sepsis, unspecified organism (principal); I21.4 Non-ST elevation (NSTEMI) myocardial infarction; N17.9 Acute kidney failure, unspecified; E87.2 Acidosis; E87.1 Hypo-osmolality and hyponatremia; G93.40 Encephalopathy, unspecified; S22.39XA Fracture of one rib, unspecified side, initial encounter for closed fracture; N18.4 Chronic kidney disease, stage 4 (severe); E11.22 Type 2 diabetes mellitus with diabetic chronic kidney disease; E78.00 Pure hypercholesterolemia, unspecified; E83.42 Hypomagnesemia; G20 Parkinson's disease; I48.91 Unspecified atrial fibrillation; E78.5 Hyperlipidemia, unspecified; E86.0 Dehydration; F02.80 Dementia in other diseases classified elsewhere, unspecified severity, without behavioral disturbance, psychotic disturbance, mood disturbance, and anxiety; W18.39XA Other fall on same level, initial encounter; N18.3 Chronic kidney disease, stage 3 (moderate); I12.9 Hypertensive chronic kidney disease with stage 1 through stage 4 chronic kidney disease, or unspecified chronic kidney disease; I25.10 Atherosclerotic heart disease of native coronary artery without angina pectoris; M10.9 Gout, unspecified; Z79.4 Long term (current) use of insulin; Z79.82 Long term (current) use of aspirin; Y93.89 Activity, other specified; Y92.89 Other specified places as the place of occurrence of the external cause; Y99.8 Other external cause status
CPT/HCPCS: 70450; 72125; 82271; 83605; 83735; 84100; 84145; 84550; 85651; 87040; 87081; 90732; 93005; 93306; 95816; 97116; 97162; 97167; 97530; 97535; G0378; J0282; J0360; J0696; J1160; J1644; J1815; J2060; J2920; J3475; J3490; J7030; J7050; J7060; Q9967

== ENCOUNTER 2019-10-10 16:00 | Inpatient (IN) | payer MEDICARE, OTHER ==
[~2019-10-10] VITALS: Ht 172.7 cm; Wt 61.7 kg
[~2019-10-10 16:00] MED LIST: ACET-2247 PO; ALPR0.255 PO; ASPI-1182 PO; ATOR10TA84 PO; CALC-1038 PO; CARB-38 PO; CHOL100018 PO; EXEN2PEN SQ; FISH1 PO; INSLAN SQ; MELA5TAB3 PO; METF-960 PO; METO-558 PO; POLY17PO PO; SELE PO; SITA50 PO
[2019-10-10 16:10] VITALS: BP 119/60
[2019-10-10] MEDS ORDERED: DEXTROSE 50%-WATER 25 GM/50 ML SYRINGE IVP PRN (18:00)
[2019-10-10] MEDS ORDERED: INSULIN LISPRO 100 UNITS/ML SQ PRN (18:00)
[2019-10-10] MEDS ORDERED: ONDANSETRON HCL 4 MG TABLET PO PRN (18:30)
[2019-10-10] MEDS ORDERED: ACETAMINOPHEN 325 MG TABLET PO PRN (18:30)
[2019-10-10] MEDS ORDERED: HydrALAZINE HCL 10 MG TABLET PO PRN (18:30)
[2019-10-10] MEDS ORDERED: ZOLPIDEM TARTRATE 5 MG TABLET PO PRN (18:30)
[2019-10-10] MEDS ORDERED: LORazepam 0.5 MG TABLET PO PRN (18:30)
[2019-10-10 19:38] LABS: GLUCOMETER DEV NAME(LOC) 2WR.2; GLUCOSE,POINT OF CARE 328 MG/DL (70-110)
[2019-10-10] MEDS ORDERED: INFLUENZA VIRUS VACCINE QVS 2019-20 (3YR+)/PF 60 MCG/0.5 ML SYRINGE IM ONE (20:15)
[2019-10-10 20:31] VITALS: BP 131/70
[2019-10-10] MEDS: SENNA 187 MG TABLET PO SCH (20:33)
[2019-10-10] MEDS: DOCUSATE SODIUM 250 MG CAPSULE PO SCH (20:34)
[2019-10-10] MEDS: SELEGILINE HCL 5 MG TABLET PO SCH (20:34)
[2019-10-10] MEDS: AMIODARONE HCL 200 MG TABLET PO SCH (20:34)
[2019-10-10] MEDS: ROSUVASTATIN CALCIUM 20 MG TABLET PO SCH (20:34)
[2019-10-10] MEDS: CARBIDOPA/LEVODOPA 25-100 MG TABLET PO SCH (20:35)
[2019-10-10] MEDS: INSULIN GLARGINE,HUM.REC.ANLOG 100 UNITS/ML SQ SCH (20:47)
[2019-10-10] MEDS ORDERED: QUEtiapine FUMARATE 25 MG TABLET PO SCH (21:00)
[2019-10-10 21:47] LABS: GLUCOMETER DEV NAME(LOC) 2WR.2; GLUCOSE,POINT OF CARE 452 MG/DL (70-110)
[2019-10-10 22:14] LABS: GLUCOMETER DEV NAME(LOC) 2WR.2; GLUCOSE,POINT OF CARE 437 MG/DL (70-110)
[2019-10-10] MEDS: INSULIN LISPRO 100 UNITS/ML SQ PRN (22:17)
[2019-10-11] VITALS: BP 127/74
[2019-10-11] MEDS: 0.9% SODIUM CHLORIDE 10 ML SYRINGE IVP SCH ×3 (00:10→16:03)
[2019-10-11 00:22] LABS: GLUCOMETER DEV NAME(LOC) 2WR.2; GLUCOSE,POINT OF CARE 261 MG/DL (70-110)
[2019-10-11 05:00] VITALS: BP 138/75
[2019-10-11 05:22] LABS: GLUCOMETER DEV NAME(LOC) 2WR.1B; GLUCOSE,POINT OF CARE 186 MG/DL (70-110)
[2019-10-11] MEDS: PANTOPRAZOLE SODIUM 40 MG DR TABLET PO SCH (06:21)
[2019-10-11 07:22] LABS: EOSINOPHILS % (AUTO) 0 % (1.0-6.0); HEMATOCRIT 33.8 % (41-53); HEMOGLOBIN 11.2 g/dL (13.5-17.5); LYMPHOCYTES # (AUTO) 0.5 K/uL (1.0-4.8); LYMPHOCYTES % (AUTO) 3.8 % (22.0-44.0); MEAN CORPUSCULAR HEMOGLOBIN 29.3 pg (26.0-34.0); MEAN CORPUSCULAR HGB CONC 33.1 G/dL (31.0-37.0); MEAN CORPUSCULAR VOLUME 89 fL (80-100); MONOCYTES % (AUTO) 7.1 % (2.0-9.0); PLATELET COUNT (AUTO) 456 K/uL (150-450); RED BLOOD CELL COUNT(AUTO) 3.82 MIL/uL (4.50-5.90); RED CELL DISTRIBUTION WIDTH 13.7 % (11.5-14.5)
[2019-10-11 07:26] LABS: NEUTROPHILS % (AUTO) 89.1 % (40.0-70.0)
[2019-10-11] MEDS: INSULIN LISPRO 100 UNITS/ML SQ PRN ×4 (07:36→21:15)
[2019-10-11 07:41] LABS: ALBUMIN 2.5 g/dL (3.4-5.0); BILIRUBIN,TOTAL 0.4 mg/dL (0.1-1.0); CALCIUM, TOTAL 9.1 mg/dL (8.8-10.5); CREATININE 1.88 mg/dL (0.60-1.30); POTASSIUM 4.2 mmol/L (3.5-5.1); TOTAL PROTEIN, SERUM 6.5 g/dL (6.4-8.2)
[2019-10-11] MEDS: AmLODIPine BESYLATE 5 MG TABLET PO SCH (08:26)
[2019-10-11] MEDS: CALCIUM OYSTER SHELL 500 MG TABLET PO SCH (08:26)
[2019-10-11] MEDS: VITAMIN B COMP/VIT C/FOLIC ACID CAPSULE PO SCH (08:26)
[2019-10-11] MEDS: AMIODARONE HCL 200 MG TABLET PO SCH ×2 (08:26→17:20)
[2019-10-11] MEDS: ASPIRIN 81 MG CHEWABLE TABLET PO SCH (08:26)
[2019-10-11] MEDS: CARBIDOPA/LEVODOPA 25-100 MG TABLET PO SCH ×4 (08:26→21:07)
[2019-10-11] MEDS: SELEGILINE HCL 5 MG TABLET PO SCH ×2 (08:26→21:06)
[2019-10-11] MEDS: DOCUSATE SODIUM 250 MG CAPSULE PO SCH ×2 (08:27→21:06)
[2019-10-11] MEDS: METOPROLOL SUCCINATE 50 MG ER TABLET PO SCH (08:27)
[2019-10-11 10:11] VITALS: BP 147/77
[2019-10-11] MEDS: CHOLECALCIFEROL (VIT D3) 1,000 UNITS TABLET PO SCH (12:28)
[2019-10-11 15:56] VITALS: BP 128/68
[2019-10-11 17:15] VITALS: BP 138/75
[2019-10-11 17:25] LABS: GLUCOMETER DEV NAME(LOC) 2WR.2; GLUCOSE,POINT OF CARE 217 MG/DL (70-110)
[2019-10-11 17:39] LABS: GLUCOMETER DEV NAME(LOC) 2WR.1B; GLUCOSE,POINT OF CARE 232 MG/DL (70-110)
[2019-10-11] MEDS: SENNA 187 MG TABLET PO SCH (21:07)
[2019-10-11] MEDS: ROSUVASTATIN CALCIUM 20 MG TABLET PO SCH (21:07)
[2019-10-11] MEDS: INSULIN GLARGINE,HUM.REC.ANLOG 100 UNITS/ML SQ SCH (21:17)
[2019-10-11 21:37] LABS: GLUCOMETER DEV NAME(LOC) 2WR.1B; GLUCOSE,POINT OF CARE 192 MG/DL (70-110)
[2019-10-11 23:35] VITALS: BP 148/81
[2019-10-12] MEDS: PANTOPRAZOLE SODIUM 40 MG DR TABLET PO SCH (05:50)
[2019-10-12 06:38] LABS: GLUCOMETER DEV NAME(LOC) 2WR.1B; GLUCOSE,POINT OF CARE 178 MG/DL (70-110)
[2019-10-12 08:00] VITALS: BP 146/75
[2019-10-12] MEDS: AmLODIPine BESYLATE 5 MG TABLET PO SCH (09:30)
[2019-10-12] MEDS: AMIODARONE HCL 200 MG TABLET PO SCH ×2 (09:30→16:34)
[2019-10-12] MEDS: METOPROLOL SUCCINATE 50 MG ER TABLET PO SCH (09:30)
[2019-10-12] MEDS: CARBIDOPA/LEVODOPA 25-100 MG TABLET PO SCH ×4 (09:30→21:04)
[2019-10-12] MEDS: DOCUSATE SODIUM 250 MG CAPSULE PO SCH ×2 (09:30→21:04)
[2019-10-12] MEDS: VITAMIN B COMP/VIT C/FOLIC ACID CAPSULE PO SCH (09:30)
[2019-10-12] MEDS: POLYETHYLENE GLYCOL 3350 17 GM PACKET PO SCH (09:30)
[2019-10-12] MEDS: SELEGILINE HCL 5 MG TABLET PO SCH ×2 (09:30→21:04)
[2019-10-12] MEDS: ASPIRIN 81 MG CHEWABLE TABLET PO SCH (09:30)
[2019-10-12] MEDS: CALCIUM OYSTER SHELL 500 MG TABLET PO SCH (09:30)
[2019-10-12] MEDS: INSULIN LISPRO 100 UNITS/ML SQ PRN ×3 (10:17→21:19)
[2019-10-12 12:07] LABS: GLUCOMETER DEV NAME(LOC) 2WR.2; GLUCOSE,POINT OF CARE 206 MG/DL (70-110)
[2019-10-12] MEDS: COLCHICINE 0.6 MG TABLET PO SCH (12:29)
[2019-10-12] MEDS: ASCORBIC ACID 500 MG TABLET PO SCH (12:30)
[2019-10-12] MEDS: CHOLECALCIFEROL (VIT D3) 1,000 UNITS TABLET PO SCH (12:30)
[2019-10-12] MEDS: ALLOPURINOL 100 MG TABLET PO SCH (12:30)
[2019-10-12 15:30] VITALS: BP 106/55
[2019-10-12 16:33] VITALS: BP 129/66
[2019-10-12 17:16] LABS: GLUCOMETER DEV NAME(LOC) 2WR.1B; GLUCOSE,POINT OF CARE 98 MG/DL (70-110)
[2019-10-12] MEDS: ROSUVASTATIN CALCIUM 20 MG TABLET PO SCH (21:04)
[2019-10-12] MEDS: QUEtiapine FUMARATE 25 MG TABLET PO SCH (21:04)
[2019-10-12] MEDS: SENNA 187 MG TABLET PO SCH (21:04)
[2019-10-12] MEDS: INSULIN GLARGINE,HUM.REC.ANLOG 100 UNITS/ML SQ SCH (21:18)
[2019-10-13] VITALS: BP 140/71
[2019-10-13 05:38] LABS: GLUCOMETER DEV NAME(LOC) 2WR.1B; GLUCOSE,POINT OF CARE 233 MG/DL (70-110)
[2019-10-13] MEDS: PANTOPRAZOLE SODIUM 40 MG DR TABLET PO SCH (06:13)
[2019-10-13 06:39] LABS: GLUCOMETER DEV NAME(LOC) 2WR.2; GLUCOSE,POINT OF CARE 193 MG/DL (70-110)
[2019-10-13] MEDS: ASPIRIN 81 MG CHEWABLE TABLET PO SCH (08:01)
[2019-10-13] MEDS: AMIODARONE HCL 200 MG TABLET PO SCH ×2 (08:02→17:45)
[2019-10-13] MEDS: DOCUSATE SODIUM 250 MG CAPSULE PO SCH ×2 (08:02→20:36)
[2019-10-13] MEDS: CARBIDOPA/LEVODOPA 25-100 MG TABLET PO SCH ×5 (08:02→20:59)
[2019-10-13] MEDS: VITAMIN B COMP/VIT C/FOLIC ACID CAPSULE PO SCH (08:02)
[2019-10-13] MEDS: CALCIUM OYSTER SHELL 500 MG TABLET PO SCH (08:02)
[2019-10-13] MEDS: SELEGILINE HCL 5 MG TABLET PO SCH ×2 (08:03→20:36)
[2019-10-13] MEDS: INSULIN LISPRO 100 UNITS/ML SQ PRN ×4 (08:17→20:58)
[2019-10-13] MEDS: AmLODIPine BESYLATE 5 MG TABLET PO SCH (08:43)
[2019-10-13] MEDS: METOPROLOL SUCCINATE 50 MG ER TABLET PO SCH (08:43)
[2019-10-13] MEDS ORDERED: CHOL100018 PO (11:42)
[2019-10-13] MEDS ORDERED: OXYGEN THERAPY IH PRN (12:15)
[2019-10-13] MEDS: CHOLECALCIFEROL (VIT D3) 1,000 UNITS TABLET PO SCH (12:50)
[2019-10-13] MEDS: ALLOPURINOL 100 MG TABLET PO SCH (12:51)
[2019-10-13] MEDS: COLCHICINE 0.6 MG TABLET PO SCH (12:51)
[2019-10-13] MEDS: ASCORBIC ACID 500 MG TABLET PO SCH (12:54)
[2019-10-13 15:41] VITALS: BP 128/60
[2019-10-13 17:32] LABS: GLUCOMETER DEV NAME(LOC) 2WR.2; GLUCOSE,POINT OF CARE 218 MG/DL (70-110)
[2019-10-13 17:32] LABS: GLUCOMETER DEV NAME(LOC) 2WR.2; GLUCOSE,POINT OF CARE 276 MG/DL (70-110)
[2019-10-13 20:34] VITALS: BP 146/71
[2019-10-13] MEDS: ROSUVASTATIN CALCIUM 20 MG TABLET PO SCH (20:36)
[2019-10-13] MEDS: SENNA 187 MG TABLET PO SCH (20:36)
[2019-10-13] MEDS: QUEtiapine FUMARATE 25 MG TABLET PO SCH (20:36)
[2019-10-13] MEDS: INSULIN GLARGINE,HUM.REC.ANLOG 100 UNITS/ML SQ SCH (20:57)
[2019-10-13 21:14] LABS: GLUCOMETER DEV NAME(LOC) 2WR.2; GLUCOSE,POINT OF CARE 218 MG/DL (70-110)
[2019-10-14] VITALS: BP 135/65
[2019-10-14] MEDS: PANTOPRAZOLE SODIUM 40 MG DR TABLET PO SCH (06:00)
[2019-10-14 07:13] LABS: GLUCOMETER DEV NAME(LOC) 2WR.2; GLUCOSE,POINT OF CARE 169 MG/DL (70-110)
[2019-10-14 07:57] VITALS: BP 132/58
[2019-10-14] MEDS: AMIODARONE HCL 200 MG TABLET PO SCH ×2 (08:04→17:18)
[2019-10-14] MEDS: POLYETHYLENE GLYCOL 3350 17 GM PACKET PO SCH (08:04)
[2019-10-14] MEDS: ASPIRIN 81 MG CHEWABLE TABLET PO SCH (08:04)
[2019-10-14] MEDS: INSULIN LISPRO 100 UNITS/ML SQ PRN ×4 (08:09→20:52)
[2019-10-14] MEDS: CALCIUM OYSTER SHELL 500 MG TABLET PO SCH (09:35)
[2019-10-14] MEDS: CARBIDOPA/LEVODOPA 25-100 MG TABLET PO SCH ×5 (09:35→20:34)
[2019-10-14] MEDS: SELEGILINE HCL 5 MG TABLET PO SCH ×2 (09:35→20:34)
[2019-10-14] MEDS: VITAMIN B COMP/VIT C/FOLIC ACID CAPSULE PO SCH (09:35)
[2019-10-14] MEDS: METOPROLOL SUCCINATE 50 MG ER TABLET PO SCH (09:36)
[2019-10-14] MEDS: AmLODIPine BESYLATE 5 MG TABLET PO SCH (09:36)
[2019-10-14] MEDS: DOCUSATE SODIUM 250 MG CAPSULE PO SCH ×2 (09:36→20:34)
[2019-10-14] MEDS: ASCORBIC ACID 500 MG TABLET PO SCH (12:40)
[2019-10-14] MEDS: ALLOPURINOL 100 MG TABLET PO SCH (12:40)
[2019-10-14] MEDS: CHOLECALCIFEROL (VIT D3) 1,000 UNITS TABLET PO SCH (12:40)
[2019-10-14] MEDS: COLCHICINE 0.6 MG TABLET PO SCH (12:41)
[2019-10-14] MEDS ORDERED: GuaiFENesin [SUGAR-FREE] 200 MG/10 ML SOLUTION UDCUP PO PRN (13:15)
[2019-10-14 15:55] VITALS: BP 132/69
[2019-10-14 17:16] VITALS: BP 133/59
[2019-10-14 17:47] LABS: GLUCOMETER DEV NAME(LOC) 2WR.2; GLUCOSE,POINT OF CARE 264 MG/DL (70-110)
[2019-10-14 20:31] VITALS: BP 140/77
[2019-10-14] MEDS: SENNA 187 MG TABLET PO SCH (20:34)
[2019-10-14] MEDS: COLD CREAM, SKIN EMOLLIENT 170 GM JAR TP SCH (20:34)
[2019-10-14] MEDS: QUEtiapine FUMARATE 25 MG TABLET PO SCH (20:34)
[2019-10-14] MEDS: ROSUVASTATIN CALCIUM 20 MG TABLET PO SCH (20:34)
[2019-10-14] MEDS: INSULIN GLARGINE,HUM.REC.ANLOG 100 UNITS/ML SQ SCH (20:50)
[2019-10-14 21:51] LABS: GLUCOMETER DEV NAME(LOC) 2WR.2; GLUCOSE,POINT OF CARE 230 MG/DL (70-110)
[2019-10-15 00:47] LABS: GLUCOMETER DEV NAME(LOC) 2WR.1B; GLUCOSE,POINT OF CARE 249 MG/DL (70-110)
[2019-10-15 03:02] VITALS: BP 152/78
[2019-10-15 05:57] LABS: GLUCOMETER DEV NAME(LOC) 2WR.1B; GLUCOSE,POINT OF CARE 87 MG/DL (70-110)
[2019-10-15] MEDS: PANTOPRAZOLE SODIUM 40 MG DR TABLET PO SCH (06:10)
[2019-10-15 06:57] LABS: BASOPHILS % (AUTO) 0.2 % (0.0-2.0); EOSINOPHILS % (AUTO) 1.5 % (1.0-6.0); HEMATOCRIT 34.3 % (41-53); HEMOGLOBIN 11.2 g/dL (13.5-17.5); LYMPHOCYTES # (AUTO) 0.9 K/uL (1.0-4.8); LYMPHOCYTES % (AUTO) 8.7 % (22.0-44.0); MEAN CORPUSCULAR HEMOGLOBIN 29.1 pg (26.0-34.0); MEAN CORPUSCULAR HGB CONC 32.7 G/dL (31.0-37.0); MEAN CORPUSCULAR VOLUME 89 fL (80-100); MONOCYTES # (AUTO) 0.7 K/uL (0.1-1.0); MONOCYTES % (AUTO) 6.6 % (2.0-9.0); PLATELET COUNT (AUTO) 482 K/uL (150-450); RED BLOOD CELL COUNT(AUTO) 3.85 MIL/uL (4.50-5.90); RED CELL DISTRIBUTION WIDTH 13.9 % (11.5-14.5)
[2019-10-15 07:05] LABS: CALCIUM, TOTAL 8.8 mg/dL (8.8-10.5); CREATININE 1.59 mg/dL (0.60-1.30); POTASSIUM 3.6 mmol/L (3.5-5.1)
[2019-10-15 07:40] VITALS: BP 150/79
[2019-10-15] MEDS: DOCUSATE SODIUM 250 MG CAPSULE PO SCH ×2 (10:27→21:00)
[2019-10-15] MEDS: METOPROLOL SUCCINATE 50 MG ER TABLET PO SCH (10:27)
[2019-10-15] MEDS: VITAMIN B COMP/VIT C/FOLIC ACID CAPSULE PO SCH (10:27)
[2019-10-15] MEDS: SELEGILINE HCL 5 MG TABLET PO SCH ×2 (10:27→21:00)
[2019-10-15] MEDS: CALCIUM OYSTER SHELL 500 MG TABLET PO SCH (10:28)
[2019-10-15] MEDS: AMIODARONE HCL 200 MG TABLET PO SCH ×2 (10:28→17:12)
[2019-10-15] MEDS: AmLODIPine BESYLATE 5 MG TABLET PO SCH (10:28)
[2019-10-15] MEDS: CARBIDOPA/LEVODOPA 25-100 MG TABLET PO SCH ×5 (10:28→21:00)
[2019-10-15] MEDS: ASPIRIN 81 MG CHEWABLE TABLET PO SCH (10:28)
[2019-10-15] MEDS: ASCORBIC ACID 500 MG TABLET PO SCH (12:58)
[2019-10-15] MEDS: CHOLECALCIFEROL (VIT D3) 1,000 UNITS TABLET PO SCH (12:58)
[2019-10-15] MEDS: ALLOPURINOL 100 MG TABLET PO SCH (12:58)
[2019-10-15] MEDS: COLCHICINE 0.6 MG TABLET PO SCH (12:58)
[2019-10-15 15:08] VITALS: BP 124/66
[2019-10-15 16:55] LABS: GLUCOMETER DEV NAME(LOC) 2WR.2; GLUCOSE,POINT OF CARE 108 MG/DL (70-110)
[2019-10-15] MEDS: MetFORMIN HCL 500 MG TABLET PO SCH (17:12)
[2019-10-15 19:22] LABS: GLUCOMETER DEV NAME(LOC) 2WR.1B; GLUCOSE,POINT OF CARE 196 MG/DL (70-110)
[2019-10-15] MEDS: QUEtiapine FUMARATE 25 MG TABLET PO SCH (21:00)
[2019-10-15] MEDS: COLD CREAM, SKIN EMOLLIENT 170 GM JAR TP SCH (21:00)
[2019-10-15] MEDS: INSULIN GLARGINE,HUM.REC.ANLOG 100 UNITS/ML SQ SCH (21:00)
[2019-10-15] MEDS: ROSUVASTATIN CALCIUM 20 MG TABLET PO SCH (21:00)
[2019-10-15] MEDS: SENNA 187 MG TABLET PO SCH (21:00)
[2019-10-16] MEDS: QUEtiapine FUMARATE 25 MG TABLET PO SCH
[2019-10-16] MEDS: SELEGILINE HCL 5 MG TABLET PO SCH ×2 (08:55→21:00)
[2019-10-16] MEDS: METOPROLOL SUCCINATE 50 MG ER TABLET PO SCH (08:55)
[2019-10-16] MEDS: VITAMIN B COMP/VIT C/FOLIC ACID CAPSULE PO SCH (08:55)
[2019-10-16] MEDS: POLYETHYLENE GLYCOL 3350 17 GM PACKET PO SCH (08:55)
[2019-10-16] MEDS: ASPIRIN 81 MG CHEWABLE TABLET PO SCH (08:55)
[2019-10-16] MEDS: AmLODIPine BESYLATE 5 MG TABLET PO SCH (08:55)
[2019-10-16] MEDS: MetFORMIN HCL 500 MG TABLET PO SCH ×2 (08:56→17:40)
[2019-10-16] MEDS: DOCUSATE SODIUM 250 MG CAPSULE PO SCH ×2 (08:56→21:00)
[2019-10-16] MEDS: AMIODARONE HCL 200 MG TABLET PO SCH ×2 (08:56→17:40)
[2019-10-16] MEDS: CALCIUM OYSTER SHELL 500 MG TABLET PO SCH (08:56)
[2019-10-16] MEDS: PANTOPRAZOLE SODIUM 40 MG DR TABLET PO SCH (08:56)
[2019-10-16] MEDS: CARBIDOPA/LEVODOPA 25-100 MG TABLET PO SCH ×5 (08:56→21:00)
[2019-10-16 09:00] VITALS: BP 154/85
[2019-10-16] MEDS: INSULIN LISPRO 100 UNITS/ML SQ PRN ×3 (09:03→17:41)
[2019-10-16 11:44] LABS: GLUCOMETER DEV NAME(LOC) 2WR.2; GLUCOSE,POINT OF CARE 178 MG/DL (70-110)
[2019-10-16] MEDS: BYDUREON SQ SCH (11:54)
[2019-10-16] MEDS ORDERED: *PATIENT'S OWN MED [ENTER DRUG, DOSE, FREQUENCY IN COMMENTS] CLINICAL SCH (12:00)
[2019-10-16] MEDS: CHOLECALCIFEROL (VIT D3) 1,000 UNITS TABLET PO SCH (12:12)
[2019-10-16] MEDS: ALLOPURINOL 100 MG TABLET PO SCH (12:12)
[2019-10-16] MEDS: ASCORBIC ACID 500 MG TABLET PO SCH (12:13)
[2019-10-16] MEDS: COLCHICINE 0.6 MG TABLET PO SCH (12:13)
[2019-10-16 15:00] VITALS: BP 138/74
[2019-10-16 18:33] LABS: GLUCOMETER DEV NAME(LOC) 2WR.2; GLUCOSE,POINT OF CARE 204 MG/DL (70-110)
[2019-10-16] MEDS: ROSUVASTATIN CALCIUM 20 MG TABLET PO SCH (21:00)
[2019-10-16] MEDS: COLD CREAM, SKIN EMOLLIENT 170 GM JAR TP SCH (21:00)
[2019-10-16] MEDS: SENNA 187 MG TABLET PO SCH (21:00)
[2019-10-16] MEDS: INSULIN GLARGINE,HUM.REC.ANLOG 100 UNITS/ML SQ SCH (21:00)
[2019-10-16 23:31] LABS: GLUCOMETER DEV NAME(LOC) 2WR.1B; GLUCOSE,POINT OF CARE 197 MG/DL (70-110)
[2019-10-16 23:31] LABS: GLUCOMETER DEV NAME(LOC) 2WR.1B; GLUCOSE,POINT OF CARE 167 MG/DL (70-110)
[2019-10-17] VITALS: BP 136/63
[2019-10-17 07:21] LABS: GLUCOMETER DEV NAME(LOC) 2WR.1B; GLUCOSE,POINT OF CARE 176 MG/DL (70-110)
[2019-10-17] MEDS: SELEGILINE HCL 5 MG TABLET PO SCH ×2 (08:19→21:00)
[2019-10-17] MEDS: AMIODARONE HCL 200 MG TABLET PO SCH ×2 (08:19→17:53)
[2019-10-17] MEDS: MetFORMIN HCL 500 MG TABLET PO SCH ×2 (08:19→17:53)
[2019-10-17] MEDS: VITAMIN B COMP/VIT C/FOLIC ACID CAPSULE PO SCH (08:19)
[2019-10-17] MEDS: CARBIDOPA/LEVODOPA 25-100 MG TABLET PO SCH ×5 (08:20→21:00)
[2019-10-17] MEDS: AmLODIPine BESYLATE 5 MG TABLET PO SCH (08:20)
[2019-10-17] MEDS: CALCIUM OYSTER SHELL 500 MG TABLET PO SCH (08:20)
[2019-10-17] MEDS: PANTOPRAZOLE SODIUM 40 MG DR TABLET PO SCH (08:20)
[2019-10-17] MEDS: DOCUSATE SODIUM 250 MG CAPSULE PO SCH ×2 (08:20→21:00)
[2019-10-17] MEDS: ASPIRIN 81 MG CHEWABLE TABLET PO SCH (08:20)
[2019-10-17] MEDS: METOPROLOL SUCCINATE 50 MG ER TABLET PO SCH (08:20)
[2019-10-17] MEDS: INSULIN LISPRO 100 UNITS/ML SQ PRN ×3 (08:22→17:57)
[2019-10-17 08:35] VITALS: BP 156/72
[2019-10-17] MEDS: COLCHICINE 0.6 MG TABLET PO SCH (12:23)
[2019-10-17] MEDS: CHOLECALCIFEROL (VIT D3) 1,000 UNITS TABLET PO SCH (12:23)
[2019-10-17] MEDS: ALLOPURINOL 100 MG TABLET PO SCH (12:30)
[2019-10-17] MEDS: ASCORBIC ACID 500 MG TABLET PO SCH (12:31)
[2019-10-17 12:40] LABS: GLUCOMETER DEV NAME(LOC) 2WR.2; GLUCOSE,POINT OF CARE 229 MG/DL (70-110)
[2019-10-17 15:00] VITALS: BP 130/70
[2019-10-17] MEDS: INSULIN GLARGINE,HUM.REC.ANLOG 100 UNITS/ML SQ SCH (21:00)
[2019-10-17] MEDS: SENNA 187 MG TABLET PO SCH (21:00)
[2019-10-17] MEDS: COLD CREAM, SKIN EMOLLIENT 170 GM JAR TP SCH (21:00)
[2019-10-17] MEDS: QUEtiapine FUMARATE 25 MG TABLET PO SCH (21:00)
[2019-10-17] MEDS: ROSUVASTATIN CALCIUM 20 MG TABLET PO SCH (21:00)
[2019-10-18] VITALS: BP 137/66
[2019-10-18 04:17] LABS: GLUCOMETER DEV NAME(LOC) 2WR.1B; GLUCOSE,POINT OF CARE 182 MG/DL (70-110)
[2019-10-18] MEDS: PANTOPRAZOLE SODIUM 40 MG DR TABLET PO SCH (05:38)
[2019-10-18 06:39] LABS: GLUCOMETER DEV NAME(LOC) 2WR.2; GLUCOSE,POINT OF CARE 180 MG/DL (70-110)
[2019-10-18 07:27] VITALS: BP 152/74
[2019-10-18] MEDS: MetFORMIN HCL 500 MG TABLET PO SCH ×2 (08:35→17:22)
[2019-10-18] MEDS: ASPIRIN 81 MG CHEWABLE TABLET PO SCH (08:35)
[2019-10-18] MEDS: AMIODARONE HCL 200 MG TABLET PO SCH ×2 (08:35→17:22)
[2019-10-18] MEDS: POLYETHYLENE GLYCOL 3350 17 GM PACKET PO SCH (08:38)
[2019-10-18] MEDS: DOCUSATE SODIUM 250 MG CAPSULE PO SCH ×2 (08:38→21:10)
[2019-10-18] MEDS: SELEGILINE HCL 5 MG TABLET PO SCH ×2 (08:38→21:10)
[2019-10-18] MEDS: CALCIUM OYSTER SHELL 500 MG TABLET PO SCH (08:38)
[2019-10-18] MEDS: VITAMIN B COMP/VIT C/FOLIC ACID CAPSULE PO SCH (08:38)
[2019-10-18] MEDS: CARBIDOPA/LEVODOPA 25-100 MG TABLET PO SCH ×5 (08:39→21:10)
[2019-10-18] MEDS: INSULIN LISPRO 100 UNITS/ML SQ PRN ×3 (08:44→18:06)
[2019-10-18] MEDS: AmLODIPine BESYLATE 5 MG TABLET PO SCH (09:18)
[2019-10-18] MEDS: METOPROLOL SUCCINATE 50 MG ER TABLET PO SCH (09:18)
[2019-10-18 12:36] LABS: GLUCOMETER DEV NAME(LOC) 2WR.2; GLUCOSE,POINT OF CARE 239 MG/DL (70-110)
[2019-10-18] MEDS: ALLOPURINOL 100 MG TABLET PO SCH (12:37)
[2019-10-18] MEDS: CHOLECALCIFEROL (VIT D3) 1,000 UNITS TABLET PO SCH (12:37)
[2019-10-18] MEDS: ASCORBIC ACID 500 MG TABLET PO SCH (12:37)
[2019-10-18] MEDS: COLCHICINE 0.6 MG TABLET PO SCH (12:38)
[2019-10-18 15:54] VITALS: BP 126/64
[2019-10-18 17:19] LABS: GLUCOMETER DEV NAME(LOC) 2WR.2; GLUCOSE,POINT OF CARE 162 MG/DL (70-110)
[2019-10-18 18:17] VITALS: BP 137/73
[2019-10-18 21:05] VITALS: BP 131/68
[2019-10-18] MEDS: QUEtiapine FUMARATE 25 MG TABLET PO SCH (21:10)
[2019-10-18] MEDS: SENNA 187 MG TABLET PO SCH (21:10)
[2019-10-18] MEDS: COLD CREAM, SKIN EMOLLIENT 170 GM JAR TP SCH (21:10)
[2019-10-18] MEDS: ROSUVASTATIN CALCIUM 20 MG TABLET PO SCH (21:10)
[2019-10-18] MEDS: INSULIN GLARGINE,HUM.REC.ANLOG 100 UNITS/ML SQ SCH (21:14)
[2019-10-18 21:54] LABS: GLUCOMETER DEV NAME(LOC) 2WR.2; GLUCOSE,POINT OF CARE 146 MG/DL (70-110)
[2019-10-19 06:00] VITALS: BP 134/69
[2019-10-19 07:01] LABS: GLUCOMETER DEV NAME(LOC) 2WR.1B; GLUCOSE,POINT OF CARE 114 MG/DL (70-110)
[2019-10-19] MEDS ORDERED: DOCU-342 PO (07:55)
[2019-10-19] MEDS ORDERED: COLC0.6T73 PO (07:55)
[2019-10-19] MEDS ORDERED: PANT40TA25 PO (07:55)
[2019-10-19] MEDS ORDERED: B CO1CAP6 PO (07:55)
[2019-10-19] MEDS ORDERED: QUET25TA PO (07:55)
[2019-10-19] MEDS ORDERED: CHOL200059 PO ×2 (07:55)
[2019-10-19] MEDS ORDERED: ROSU20TA23 PO (07:55)
[2019-10-19] MEDS ORDERED: OS500 PO (07:55)
[2019-10-19] MEDS ORDERED: AMLO5TAB9 PO (07:55)
[2019-10-19] MEDS ORDERED: AMIO200T44 PO (07:55)
[2019-10-19] MEDS ORDERED: ALBO180CR TP (08:07)
[2019-10-19] MEDS ORDERED: INSU100V SQ (08:07)
[2019-10-19] MEDS: AMIODARONE HCL 200 MG TABLET PO SCH ×2 (08:20→17:02)
[2019-10-19] MEDS: AmLODIPine BESYLATE 5 MG TABLET PO SCH ×2 (08:20→09:49)
[2019-10-19] MEDS: ASPIRIN 81 MG CHEWABLE TABLET PO SCH (08:20)
[2019-10-19] MEDS: VITAMIN B COMP/VIT C/FOLIC ACID CAPSULE PO SCH (08:21)
[2019-10-19] MEDS: MetFORMIN HCL 500 MG TABLET PO SCH ×2 (08:21→17:02)
[2019-10-19] MEDS: DOCUSATE SODIUM 250 MG CAPSULE PO SCH ×2 (08:21→20:57)
[2019-10-19] MEDS: CALCIUM OYSTER SHELL 500 MG TABLET PO SCH (08:21)
[2019-10-19] MEDS: PANTOPRAZOLE SODIUM 40 MG DR TABLET PO SCH (08:21)
[2019-10-19] MEDS: SELEGILINE HCL 5 MG TABLET PO SCH ×2 (08:21→20:57)
[2019-10-19] MEDS: CARBIDOPA/LEVODOPA 25-100 MG TABLET PO SCH ×5 (08:22→20:57)
[2019-10-19 09:08] VITALS: BP 144/72
[2019-10-19] MEDS: METOPROLOL SUCCINATE 50 MG ER TABLET PO SCH (09:49)
[2019-10-19] MEDS: CHOLECALCIFEROL (VIT D3) 1,000 UNITS TABLET PO SCH (12:01)
[2019-10-19] MEDS: ALLOPURINOL 100 MG TABLET PO SCH (12:01)
[2019-10-19] MEDS: ASCORBIC ACID 500 MG TABLET PO SCH (12:01)
[2019-10-19] MEDS: COLCHICINE 0.6 MG TABLET PO SCH (12:02)
[2019-10-19 12:19] LABS: GLUCOMETER DEV NAME(LOC) 2WR.2; GLUCOSE,POINT OF CARE 134 MG/DL (70-110)
[2019-10-19 15:48] VITALS: BP 136/66
[2019-10-19 17:21] LABS: GLUCOMETER DEV NAME(LOC) 2WR.2; GLUCOSE,POINT OF CARE 170 MG/DL (70-110)
[2019-10-19 20:26] VITALS: BP 138/68
[2019-10-19] MEDS: SENNA 187 MG TABLET PO SCH (20:57)
[2019-10-19] MEDS: ROSUVASTATIN CALCIUM 20 MG TABLET PO SCH (20:57)
[2019-10-19] MEDS: COLD CREAM, SKIN EMOLLIENT 170 GM JAR TP SCH (20:57)
[2019-10-19] MEDS: QUEtiapine FUMARATE 25 MG TABLET PO SCH (20:57)
[2019-10-19] MEDS: INSULIN GLARGINE,HUM.REC.ANLOG 100 UNITS/ML SQ SCH (21:05)
[2019-10-19] MEDS: INSULIN LISPRO 100 UNITS/ML SQ PRN (21:06)
[2019-10-19 21:49] LABS: GLUCOMETER DEV NAME(LOC) 2WR.1B; GLUCOSE,POINT OF CARE 188 MG/DL (70-110)
[2019-10-20 03:30] VITALS: BP 130/66
[2019-10-20] MEDS: MetFORMIN HCL 500 MG TABLET PO SCH ×2 (07:30→17:00)
[2019-10-20] MEDS: POLYETHYLENE GLYCOL 3350 17 GM PACKET PO SCH (09:00)
[2019-10-20] MEDS: DOCUSATE SODIUM 250 MG CAPSULE PO SCH ×2 (09:00→21:00)
[2019-10-20 11:12] VITALS: BP 154/71
[2019-10-20] MEDS: CARBIDOPA/LEVODOPA 25-100 MG TABLET PO SCH ×5 (11:15→21:00)
[2019-10-20] MEDS: METOPROLOL SUCCINATE 50 MG ER TABLET PO SCH (11:15)
[2019-10-20] MEDS: SELEGILINE HCL 5 MG TABLET PO SCH ×2 (11:15→21:00)
[2019-10-20] MEDS: VITAMIN B COMP/VIT C/FOLIC ACID CAPSULE PO SCH (11:15)
[2019-10-20] MEDS: CALCIUM OYSTER SHELL 500 MG TABLET PO SCH (11:16)
[2019-10-20] MEDS: AMIODARONE HCL 200 MG TABLET PO SCH ×2 (11:16→17:30)
[2019-10-20] MEDS: PANTOPRAZOLE SODIUM 40 MG DR TABLET PO SCH (11:17)
[2019-10-20] MEDS: AmLODIPine BESYLATE 5 MG TABLET PO SCH (11:17)
[2019-10-20] MEDS: ASPIRIN 81 MG CHEWABLE TABLET PO SCH (11:17)
[2019-10-20] MEDS ORDERED: MELATONIN 5 MG TABLET PO PRN (12:00)
[2019-10-20] MEDS: CHOLECALCIFEROL (VIT D3) 1,000 UNITS TABLET PO SCH (12:39)
[2019-10-20] MEDS: ALLOPURINOL 100 MG TABLET PO SCH (12:39)
[2019-10-20] MEDS: COLCHICINE 0.6 MG TABLET PO SCH (12:39)
[2019-10-20] MEDS: ASCORBIC ACID 500 MG TABLET PO SCH (12:39)
[2019-10-20 12:41] LABS: GLUCOMETER DEV NAME(LOC) 2WR.2; GLUCOSE,POINT OF CARE 91 MG/DL (70-110)
[2019-10-20] MEDS: COLD CREAM, SKIN EMOLLIENT 170 GM JAR TP SCH (21:00)
[2019-10-20] MEDS: SENNA 187 MG TABLET PO SCH (21:00)
[2019-10-20] MEDS: ROSUVASTATIN CALCIUM 20 MG TABLET PO SCH (21:00)
[2019-10-20] MEDS: INSULIN GLARGINE,HUM.REC.ANLOG 100 UNITS/ML SQ SCH (21:00)
[2019-10-21] MEDS: PANTOPRAZOLE SODIUM 40 MG DR TABLET PO SCH (05:15)
[2019-10-21] MEDS: CARBIDOPA/LEVODOPA 25-100 MG TABLET PO SCH ×5 (08:44→21:03)
[2019-10-21] MEDS: AmLODIPine BESYLATE 5 MG TABLET PO SCH (08:44)
[2019-10-21] MEDS: SELEGILINE HCL 5 MG TABLET PO SCH ×2 (08:44→21:02)
[2019-10-21] MEDS: METOPROLOL SUCCINATE 50 MG ER TABLET PO SCH (08:44)
[2019-10-21] MEDS: AMIODARONE HCL 200 MG TABLET PO SCH ×2 (08:44→17:16)
[2019-10-21] MEDS: CALCIUM OYSTER SHELL 500 MG TABLET PO SCH (08:44)
[2019-10-21] MEDS: VITAMIN B COMP/VIT C/FOLIC ACID CAPSULE PO SCH (08:44)
[2019-10-21] MEDS: ASPIRIN 81 MG CHEWABLE TABLET PO SCH (08:45)
[2019-10-21] MEDS: MetFORMIN HCL 500 MG TABLET PO SCH (08:45)
[2019-10-21] MEDS: DOCUSATE SODIUM 250 MG CAPSULE PO SCH ×2 (08:46→21:03)
[2019-10-21 09:25] VITALS: BP 139/71
[2019-10-21] MEDS: INSULIN LISPRO 100 UNITS/ML SQ PRN ×2 (12:28→21:16)
[2019-10-21] MEDS: ASCORBIC ACID 500 MG TABLET PO SCH (12:31)
[2019-10-21] MEDS: CHOLECALCIFEROL (VIT D3) 1,000 UNITS TABLET PO SCH (12:31)
[2019-10-21] MEDS: ALLOPURINOL 100 MG TABLET PO SCH (12:31)
[2019-10-21] MEDS: COLCHICINE 0.6 MG TABLET PO SCH (12:32)
[2019-10-21 15:30] VITALS: BP 109/60
[2019-10-21] MEDS ORDERED: TraZODone HCL 50 MG TABLET PO PRN (15:30)
[2019-10-21 17:35] LABS: GLUCOMETER DEV NAME(LOC) 2WR.2; GLUCOSE,POINT OF CARE 153 MG/DL (70-110)
[2019-10-21 18:38] LABS: GLUCOMETER DEV NAME(LOC) 2WR.1B; GLUCOSE,POINT OF CARE 272 MG/DL (70-110)
[2019-10-21] MEDS: ROSUVASTATIN CALCIUM 20 MG TABLET PO SCH (21:03)
[2019-10-21] MEDS: SENNA 187 MG TABLET PO SCH (21:03)
[2019-10-21] MEDS: COLD CREAM, SKIN EMOLLIENT 170 GM JAR TP SCH (21:03)
[2019-10-21] MEDS: INSULIN GLARGINE,HUM.REC.ANLOG 100 UNITS/ML SQ SCH (21:15)
[2019-10-21 21:36] LABS: GLUCOMETER DEV NAME(LOC) 2WR.1B; GLUCOSE,POINT OF CARE 219 MG/DL (70-110)
[2019-10-22] MEDS ORDERED: DOCUSATE SODIUM 250 MG CAPSULE PO SCH
[2019-10-22] MEDS ORDERED: PANTOPRAZOLE SODIUM 40 MG DR TABLET PO SCH
[2019-10-22] MEDS ORDERED: VITAMIN B COMP/VIT C/FOLIC ACID CAPSULE PO SCH
[2019-10-22] MEDS ORDERED: ASCORBIC ACID 500 MG TABLET PO SCH
[2019-10-22] MEDS ORDERED: AMIODARONE HCL 200 MG TABLET PO SCH
[2019-10-22] MEDS ORDERED: COLCHICINE 0.6 MG TABLET PO SCH
[2019-10-22] MEDS ORDERED: ALLOPURINOL 100 MG TABLET PO SCH
[2019-10-22 02:30] VITALS: BP 121/62
[2019-10-22] MEDS: PANTOPRAZOLE SODIUM 40 MG DR TABLET PO SCH (05:55)
[2019-10-22 06:15] LABS: GLUCOMETER DEV NAME(LOC) 2WR.1B; GLUCOSE,POINT OF CARE 105 MG/DL (70-110)
[2019-10-22 08:30] VITALS: BP 139/79
[2019-10-22] MEDS ORDERED: METOPROLOL SUCCINATE 50 MG ER TABLET PO SCH (09:00)
[2019-10-22] MEDS: CARBIDOPA/LEVODOPA 25-100 MG TABLET PO SCH ×5 (12:00→21:00)
[2019-10-22 12:26] LABS: GLUCOMETER DEV NAME(LOC) 2WR.2; GLUCOSE,POINT OF CARE 115 MG/DL (70-110)
[2019-10-22] MEDS: AMIODARONE HCL 200 MG TABLET PO SCH ×2 (12:44→17:27)
[2019-10-22] MEDS: SELEGILINE HCL 5 MG TABLET PO SCH ×2 (12:46→21:00)
[2019-10-22] MEDS: CHOLECALCIFEROL (VIT D3) 1,000 UNITS TABLET PO SCH (12:47)
[2019-10-22] MEDS: VITAMIN B COMP/VIT C/FOLIC ACID CAPSULE PO SCH (12:47)
[2019-10-22] MEDS: COLCHICINE 0.6 MG TABLET PO SCH (12:48)
[2019-10-22] MEDS: DOCUSATE SODIUM 250 MG CAPSULE PO SCH ×2 (12:48→21:00)
[2019-10-22] MEDS: ASCORBIC ACID 500 MG TABLET PO SCH (12:48)
[2019-10-22] MEDS: ALLOPURINOL 100 MG TABLET PO SCH (12:48)
[2019-10-22] MEDS: CALCIUM OYSTER SHELL 500 MG TABLET PO SCH (12:48)
[2019-10-22] MEDS: ASPIRIN 81 MG CHEWABLE TABLET PO SCH (12:48)
[2019-10-22] MEDS: POLYETHYLENE GLYCOL 3350 17 GM PACKET PO SCH (12:49)
[2019-10-22] MEDS: METOPROLOL SUCCINATE 50 MG ER TABLET PO SCH (21:00)
[2019-10-22] MEDS: ROSUVASTATIN CALCIUM 20 MG TABLET PO SCH (21:00)
[2019-10-22] MEDS: COLD CREAM, SKIN EMOLLIENT 170 GM JAR TP SCH (21:00)
[2019-10-22] MEDS: INSULIN GLARGINE,HUM.REC.ANLOG 100 UNITS/ML SQ SCH (21:00)
[2019-10-22] MEDS: SENNA 187 MG TABLET PO SCH (21:00)
[2019-10-23] MEDS: PANTOPRAZOLE SODIUM 40 MG DR TABLET PO SCH (07:00)
[2019-10-23] MEDS: AMIODARONE HCL 200 MG TABLET PO SCH ×2 (08:00→17:10)
[2019-10-23] MEDS: ASPIRIN 81 MG CHEWABLE TABLET PO SCH (08:00)
[2019-10-23] MEDS: DOCUSATE SODIUM 250 MG CAPSULE PO SCH ×2 (09:00→20:26)
[2019-10-23] MEDS: BYDUREON SQ SCH (09:00)
[2019-10-23] MEDS: VITAMIN B COMP/VIT C/FOLIC ACID CAPSULE PO SCH (09:00)
[2019-10-23] MEDS: SELEGILINE HCL 5 MG TABLET PO SCH ×2 (09:00→20:26)
[2019-10-23] MEDS: CARBIDOPA/LEVODOPA 25-100 MG TABLET PO SCH ×5 (09:00→20:26)
[2019-10-23] MEDS: CALCIUM OYSTER SHELL 500 MG TABLET PO SCH (09:00)
[2019-10-23] MEDS: CHOLECALCIFEROL (VIT D3) 1,000 UNITS TABLET PO SCH (11:30)
[2019-10-23] MEDS: COLCHICINE 0.6 MG TABLET PO SCH (12:00)
[2019-10-23] MEDS: ALLOPURINOL 100 MG TABLET PO SCH (12:05)
[2019-10-23] MEDS: ASCORBIC ACID 500 MG TABLET PO SCH (12:05)
[2019-10-23 16:52] VITALS: BP 155/73
[2019-10-23] MEDS: INSULIN LISPRO 100 UNITS/ML SQ PRN (17:23)
[2019-10-23] MEDS: SENNA 187 MG TABLET PO SCH (20:26)
[2019-10-23] MEDS: METOPROLOL SUCCINATE 50 MG ER TABLET PO SCH (20:26)
[2019-10-23] MEDS: ROSUVASTATIN CALCIUM 20 MG TABLET PO SCH (20:26)
[2019-10-23] MEDS: COLD CREAM, SKIN EMOLLIENT 170 GM JAR TP SCH (20:27)
[2019-10-23] MEDS: INSULIN GLARGINE,HUM.REC.ANLOG 100 UNITS/ML SQ SCH (20:40)
[2019-10-23 22:19] LABS: GLUCOMETER DEV NAME(LOC) 2WR.1B; GLUCOSE,POINT OF CARE 203 MG/DL (70-110)
[2019-10-23 23:53] VITALS: BP 156/79
[2019-10-24 01:24] LABS: GLUCOMETER DEV NAME(LOC) 2WR.2; GLUCOSE,POINT OF CARE 133 MG/DL (70-110)
[2019-10-24] MEDS: PANTOPRAZOLE SODIUM 40 MG DR TABLET PO SCH (05:23)
[2019-10-24 05:52] LABS: GLUCOMETER DEV NAME(LOC) 2WR.1B; GLUCOSE,POINT OF CARE 135 MG/DL (70-110)
[2019-10-24] MEDS ORDERED: ALLO100T PO (07:15)
[2019-10-24 08:30] VITALS: BP 145/80
[2019-10-24] MEDS: SELEGILINE HCL 5 MG TABLET PO SCH (09:16)
[2019-10-24] MEDS: VITAMIN B COMP/VIT C/FOLIC ACID CAPSULE PO SCH (09:16)
[2019-10-24] MEDS: CARBIDOPA/LEVODOPA 25-100 MG TABLET PO SCH ×2 (09:16→12:50)
[2019-10-24] MEDS: POLYETHYLENE GLYCOL 3350 17 GM PACKET PO SCH (09:16)
[2019-10-24] MEDS: DOCUSATE SODIUM 250 MG CAPSULE PO SCH (09:16)
[2019-10-24] MEDS: AMIODARONE HCL 200 MG TABLET PO SCH (09:17)
[2019-10-24] MEDS: ASPIRIN 81 MG CHEWABLE TABLET PO SCH (09:17)
[2019-10-24] MEDS: CALCIUM OYSTER SHELL 500 MG TABLET PO SCH (09:17)
[2019-10-24] MEDS ORDERED: AMIO200T44 PO (12:44)
[2019-10-24] MEDS ORDERED: OS500 PO (12:46)
[2019-10-24] MEDS: ASCORBIC ACID 500 MG TABLET PO SCH (12:50)
[2019-10-24] MEDS: ALLOPURINOL 100 MG TABLET PO SCH (12:50)
[2019-10-24] MEDS: COLCHICINE 0.6 MG TABLET PO SCH (12:50)
[2019-10-24] MEDS: CHOLECALCIFEROL (VIT D3) 1,000 UNITS TABLET PO SCH (12:50)
[2019-10-24] MEDS: INSULIN LISPRO 100 UNITS/ML SQ PRN (12:50)
[2019-10-24] MEDS ORDERED: ASCO500 PO (12:58)
[2019-10-25 01:32] LABS: GLUCOMETER DEV NAME(LOC) 2WR.2; GLUCOSE,POINT OF CARE 237 MG/DL (70-110)
[2019-10-25] MEDS ORDERED: AMIODARONE HCL 200 MG TABLET PO SCH (09:00)
[2019-11-04] MEDS ORDERED: AMIODARONE HCL 200 MG TABLET PO SCH (09:00)
[2019-11-09] MEDS ORDERED: AMIODARONE HCL 200 MG TABLET PO SCH (09:00)
== END 2019-10-24 13:30 | disposition home health service (06) | DRG 57 ==
LOC: 2WR 16:00
PROVIDERS: ADMIT Physical Medicine & Rehabilitation; ATTEND Physical Medicine & Rehabilitation
DX: G20 Parkinson's disease (principal); I13.0 Hypertensive heart and chronic kidney disease with heart failure and stage 1 through stage 4 chronic kidney disease, or unspecified chronic kidney disease; E87.1 Hypo-osmolality and hyponatremia; E87.2 Acidosis; N17.9 Acute kidney failure, unspecified; E11.22 Type 2 diabetes mellitus with diabetic chronic kidney disease; E78.00 Pure hypercholesterolemia, unspecified; M10.9 Gout, unspecified; R54 Age-related physical debility; R32 Unspecified urinary incontinence; I95.1 Orthostatic hypotension; N31.9 Neuromuscular dysfunction of bladder, unspecified; F32.9 Major depressive disorder, single episode, unspecified; G47.33 Obstructive sleep apnea (adult) (pediatric); I50.9 Heart failure, unspecified; N18.9 Chronic kidney disease, unspecified; E78.5 Hyperlipidemia, unspecified; F02.80 Dementia in other diseases classified elsewhere, unspecified severity, without behavioral disturbance, psychotic disturbance, mood disturbance, and anxiety; F41.9 Anxiety disorder, unspecified; G47.00 Insomnia, unspecified; I25.10 Atherosclerotic heart disease of native coronary artery without angina pectoris; I48.0 Paroxysmal atrial fibrillation; K59.00 Constipation, unspecified; I25.2 Old myocardial infarction; Z79.899 Other long term (current) drug therapy; Z82.49 Family history of ischemic heart disease and other diseases of the circulatory system; Z87.891 Personal history of nicotine dependence; Z28.21 Immunization not carried out because of patient refusal; Z91.81 History of falling; R13.10 Dysphagia, unspecified
CPT/HCPCS: 87081; 97110; 97112; 97116; 97163; 97166; 97530; 97535; 99366; 99368; J1815; Q0162